=== PATIENT | female | born 1945 | race Caucasian/White ===

== ENCOUNTER 2020-08-07 07:52 | Outpatient (CLI) | payer OTHER, SELFPAY ==
--- NOTE | ~2020-08-07 | US_ITS ---
EXAMINATION: US carotid duplex BI DATE: 08/07/2020 08:39 INDICATION: Carotid artery atherosclerosis with stenosis/occlusion TECHNIQUE: Grayscale, color Doppler, and pulsed Doppler images of the cervical carotid arteries were obtained. The degree of vessel stenosis is placed in one of the following categories: normal, <50%, 5 0-69%, >=70% but less than near-occlusion, near-occlusion, or total occlusion. Note that percent sten osis relative to normal distal artery lumen diameter is indirectly measured from velocity measurement s as described by Tian, et al. Radiology 2003; 229:340-346. COMPARISON: 07/30/2010 FINDINGS: RIGHT: The right common carotid artery (CCA) peak systolic velocity (PSV) is 106 cm/s. The right internal ca rotid artery (ICA) PSV is 84 cm/s. The right ICA end-diastolic velocity (EDV) is 24 cm/s. The right I CA/CCA PSV ratio is 0.8. Grayscale and color Doppler images demonstrate no appreciable stenosis or pl aque in the ICA. The external carotid artery (ECA) PSV is 85 cm/s. There is antegrade flow in the rig ht vertebral artery. LEFT: The left CCA PSV is 74 cm/s. The left ICA PSV is 236 cm/s. The left ICA EDV is 86 cm/s. The left ICA/ CCA PSV ratio is 3.2. Grayscale and color Doppler images yield an estimate of >=70% (but less than ne ar occlusion) diameter reduction from plaque in the ICA. The ECA PSV is 338 cm/s. There is antegrade flow in the left vertebral artery. IMPRESSION: 1. Normal right internal carotid artery. 2. >=70% (but less than near occlusion) stenosis in the left internal carotid artery. Reviewed, dictated and finalized at location B. IMPRESSION: 1. Normal right internal carotid artery. 2. >=70% (but less than near occlusion) stenosis in the left internal carotid a rtery.
== END 2020-08-07 07:53 | disposition home or self-care (01) ==
PROVIDERS: PCP Internal Medicine; Visit Provider Internal Medicine
DX: I65.22 Occlusion and stenosis of left carotid artery (principal)
CPT/HCPCS: 93880

== ENCOUNTER → 2021-02-24 09:08 | Outpatient (CLI) | payer OTHER, SELFPAY ==
[2021-02-25 14:28] LABS: SARS-CoV-2 RNA PCR Negative
== END ==
PROVIDERS: PCP Internal Medicine; Visit Provider Internal Medicine
DX: J98.8 Other specified respiratory disorders (principal); Z20.822 Contact with and (suspected) exposure to COVID-19
CPT/HCPCS: C9803; U0003; U0005

== ENCOUNTER 2021-02-24 10:58 | Outpatient (CLI) | payer OTHER, SELFPAY ==
--- NOTE | ~2021-02-24 | XR_ITS ---
EXAMINATION: XR chest 2V 02/24/2021 11:34 INDICATION: Cough PROCEDURE: 2 view chest COMPARISON: 03/27/2013 FINDINGS: The lungs are clear. The cardiomediastinal silhouette is within normal limits. There are no pleural effusions. There is no pneumothorax suspected. IMPRESSION: 1: NO ACUTE CARDIOPULMONARY DISEASE. Reviewed, dictated and finalized at location A.
== END 2021-02-24 10:59 | disposition home or self-care (01) ==
PROVIDERS: PCP Internal Medicine; Visit Provider Internal Medicine
DX: R05 Cough (principal); J98.8 Other specified respiratory disorders
CPT/HCPCS: 71046; C9803; U0003; U0005

== ENCOUNTER 2021-02-27 19:31 | Emergency (ER) | payer OTHER, SELFPAY ==
--- NOTE | ~2021-02-27 | XR_ITS ---
EXAMINATION: XR soft tissue neck DATE: 02/27/2021 20:03 INDICATION: Esophageal pain. Pill stuck in throat. TECHNIQUE: 2 views of the neck soft tissues were obtained. COMPARISON: None. FINDINGS: The adenoids, palatine tonsils, epiglottis, prevertebral soft tissues, and airway are mari l. There is no radiopaque foreign body. IMPRESSION: 1. No radiopaque foreign body. Reviewed, dictated and finalized at location A.
[2021-02-27 19:33] VITALS: BP 168/69; PULSE 68; RESP 18; TEMP 36.4; O2SAT 99
[2021-02-27] MEDS: BELLADONNA ALK/PHENOB ELIX 10 ML, MAG HYDROX/ALUMINUM HYD/SIMETH 30 ML, LIDOCAINE HCL 2... PO (20:55)
--- NOTE | 2021-02-27 21:04 | PC.NURSE ---
Pt having a hard time passing any liquids states its feels so swollen and its not going down
[2021-02-27 21:25] VITALS: BP 169/83; PULSE 66; RESP 18; O2SAT 98
--- NOTE | 2021-02-27 21:25 | ED.GENADULT ---
HPI - General Adult General Chief complaint: Skin/Abscess/Foreign Body Stated complaint: pill lodged in throat Time Seen by Provider: 02/27/21 19:40 Source: patient and family Mode of arrival: ambulatory Limitations: no limitations History of Present Illness HPI narrative: 75-year-old with a history of hypertension, hyperlipidemia here with complaints of difficulty in swallowing. Patient states that she took [place] tablet and she thinks it is stuck in her throat. She is unable to swallow water or eyes. She states that she has tried several home remedies with no relief. Patient feels like golf ball stuck in her throat. She denies any nausea or vomiting. She states that she had a similar problem 20 years ago. Onset (ago): hour(s) (2) Radiation: non-radiation Severity: moderate Quality: aching Pain Consistency: constant Relieving factors: none Exacerbating factors: eating Associated symptoms: denies other symptoms Related Data Home Medications Medication Instructions Recorded Confirmed aspirin 81 mg tablet,delayed 81 mg PO DAILY 11/07/20 02/24/21 release Allergies Allergy/AdvReac Type Severity Reaction Status Date / Time No Known Allergies Allergy Verified 02/27/21 19:36 Review of Systems Review of Systems: All systems reviewed & are unremarkable except as noted in HPI and below Constitutional: Constitutional: Reports no additional constitutional complaints Eyes: Eyes: Reports no additional eye complaints ENT: Reports system reviewed and no additional complaints, except as documented Cardiovascular: Cardiovascular: Reports no additional cardiovascular complaints Respiratory: Respiratory: Reports no additional respiratory complaints Gastrointestinal: Gastrointestinal: Reports as per HPI Musculoskeletal: Musculoskeletal: Reports no additional musculoskeletal complaints Integumentary/Breasts: Skin/Breast: Reports system reviewed and no additional complaints, except as docu PMFSH Past Medical History Medical History Breast adenoma Family History Family History Mother Depression Patient's mother is Father Patient's father is Family history of alcoholism Family history of heart disease in male family member before age 55 Sibling Family history of lung cancer Patient's brother is Social History Social History Smoking status: Never smoker Alcohol intake: never Gender identity (if verbalized by the patient): Female Sexual Orientation (if Verbalized by the Patient): Straight or Heterosexual Exam Narrative: Exam Narrative: GENERAL: Well-appearing, well-nourished, and in no acute distress, anxious HEAD: Normocephalic, atraumatic. EYES: PERRLA and EOMI. ENT: Mucous membranes moist. NECK: Supple. CHEST: Clear to auscultation. No respiratory distress. HEART: Regular rate and rhythm. No murmur heard. Normal peripheral pulses. ABDOMEN: Soft, nontender, nondistended, normal active bowel sounds. EXTREMITIES: Normal range of motion. No edema. SKIN: Warm, dry, no rash. NEURO: No focal deficits. Alert and oriented x3. PSYCH: Normal mood and affect. Course Course Emergency Course: Did obtain a soft tissue neck x-ray which did not show any evidence of foreign body. I have tried GI cocktail with no relief. Discussed with Dr. Gunter will take her to the GI lab for upper endoscopy. Vital Signs Vital signs: Vital Signs Temperature 36.4 C L 02/27/21 19:33 Pulse Rate 68 02/27/21 19:33 Respiratory Rate 18 02/27/21 19:33 Blood Pressure 168/69 H 02/27/21 19:33 Pulse Oximetry 99 02/27/21 19:33 Temperature 36.4 C L 02/27/21 19:33 Pulse Rate 66 02/27/21 21:25 Respiratory Rate 18 02/27/21 21:25 Blood Pressure 169/83 H 02/27/21 21:25 Pulse Oxi
== END 2021-02-27 22:32 | disposition home or self-care (01) ==
LOC: ANHED 20:01 → ANHSURGERY 21:34 → ANHED 22:18
PROVIDERS: Emergency Provider Family Medicine; PCP Internal Medicine
DX: R13.10 Dysphagia, unspecified (principal); T17.208A Unspecified foreign body in pharynx causing other injury, initial encounter; I10 Essential (primary) hypertension; E78.5 Hyperlipidemia, unspecified
CPT/HCPCS: 70360; 99283; A9270

== ENCOUNTER 2021-04-23 00:49 | Day surgery (SDC) | payer OTHER, SELFPAY ==
[2021-04-01 13:25] VITALS: BMI 29.9
[2021-04-23 08:41] VITALS: BP 133/66; PULSE 69; RESP 18; TEMP 36.3; O2SAT 98
[2021-04-23] MEDS: LACTATED RINGERS 1,000 ML 150 ML IV CONT (08:48)
--- NOTE | 2021-04-23 09:16 | WPDANESEPPF ---
Anes - Initial Pre Proc Eval Procedure: Operation Date: 04/23/21 09:45 Proposed Procedures p Esophagogastroduodenoscopy - Yamil Brooke MD Date/Time: 04/23/21 09:17 Surgeon: Yamil Brooke MD Pre Op Diagnosis: Dysphagia Patient Data Age: 75 Gender: F Height: 1.63 m Weight: 81.7 kg Last Vital Signs Temp 97.3 F L 04/23/21 08:41 Pulse 69 04/23/21 08:41 Resp 18 04/23/21 08:41 BP 133/66 04/23/21 08:41 Pulse Ox 98 04/23/21 08:41 Allergies Allergy/AdvReac Type Severity Reaction Status Date / Time No Known Allergies Allergy Verified 04/23/21 08:40 Home Medications Medication Instructions Recorded Confirmed Type amlodipine 5 mg tablet 5 mg PO DAILY #90 tablet 06/10/20 04/23/21 Rx aspirin 81 mg tablet,delayed 81 mg PO DAILY 11/07/20 04/23/21 History release cholecalciferol (vitamin D3) 1,250 1,250 mcg PO WEEKLY #10 cap 11/18/20 04/23/21 Rx mcg (50,000 unit) capsule rosuvastatin 10 mg tablet 10 mg PO DAILY #90 tablet 02/20/21 04/23/21 Rx lisinopril 40 mg tablet See Rx Instructions .ROUTE 03/25/21 04/23/21 Rx .COMPLEX #90 tablet Patient hx anesthesia problems: none Family hx anesthesia problems: none PMFSH Past Medical History Medical History (Updated 03/04/21 @ 13:53 by KATRINA Head) Breast adenoma Hypertension Family History Family History Mother Depression Patient's mother is Father Patient's father is Family history of alcoholism Family history of heart disease in male family member before age 55 Sibling Family history of lung cancer Patient's brother is Social History Social History Smoking status: Never smoker Alcohol intake: never Living arrangements: with family Gender identity (if verbalized by the patient): Female Spiritual care concerns: No Anes - Eval Final PreProcedure Day of Procedure 04/23/21 09:17 Patient weight: obese Heart: regular rate and rhythm Lungs: clear to auscultation Airway: Mallampati scale class II Neurological: alert and oriented Last oral intake: >/= 8 hours ASA classification: III Emergent: no Anesthetic plan: proceed Anesthesia type and monitoring: general GIVS and standard monitoring Informed Consent: The patient's anesthetic plan and its attendant risks and benefits were discussed with the patient/family/POA. Questions were solicited and answers provided to the satisfaction of the patient/family/POA.
--- NOTE | 2021-04-23 09:43 | PM.HPGS ---
History of Present Illness History of Present Illness Consent: Risks, benefits, and alternatives have been discussed and questions answered. Patient agrees to proceed with procedure. Chief complaint: Dysphagia Narrative: Carly Kumar is a 75 year old female few weeks ago had episode of odynophagia/dysphagia after one pill got stuck in chest , now resolved, denies gerd. No recent EGD. Review of Systems Constitutional: Constitutional: Denies headache(s) and Denies weakness Eyes: Eyes: Denies blurry vision ENT: Reports Normal hearing present, Denies headache(s) and Denies neck pain Cardiovascular: Cardiovascular: Denies chest pain and Denies dyspnea Respiratory: Respiratory: Denies dyspnea Gastrointestinal: Gastrointestinal: Reports no additional gastrointestinal complaints Genitourinary: Genitourinary: Denies dysuria Musculoskeletal: Musculoskeletal: Denies neck pain Integumentary/Breasts: Skin/Breast: Denies dry skin Neurologic: Reports Normal hearing present, Denies headache(s) and Denies weakness Psychiatric: Psychiatric: Denies anxiety Endocrine: Endocrine: Denies change in body appearance Hematologic/Lymphatic: Hematologic/Lymphatic: Denies easy bleeding Allergic/Immunologic: Allergic/Immunologic: Denies urticaria [facility] Past Medical History Medical History (Updated 03/04/21 @ 13:53 by KATRINA Head) Breast adenoma Hypertension Family History Family History Mother Depression Patient's mother is Father Patient's father is Family history of alcoholism Family history of heart disease in male family member before age 55 Sibling Family history of lung cancer Patient's brother is Social History Social History Smoking status: Never smoker Alcohol intake: never Living arrangements: with family Gender identity (if verbalized by the patient): Female Spiritual care concerns: No Meds Home Medications and Allergies Home Medications Medication Instructions Recorded Confirmed Type amlodipine 5 mg tablet 5 mg PO DAILY #90 tablet 06/10/20 04/23/21 Rx aspirin 81 mg tablet,delayed 81 mg PO DAILY 11/07/20 04/23/21 History release cholecalciferol (vitamin D3) 1,250 1,250 mcg PO WEEKLY #10 cap 11/18/20 04/23/21 Rx mcg (50,000 unit) capsule rosuvastatin 10 mg tablet 10 mg PO DAILY #90 tablet 02/20/21 04/23/21 Rx lisinopril 40 mg tablet See Rx Instructions .ROUTE 03/25/21 04/23/21 Rx .COMPLEX #90 tablet Allergies Allergy/AdvReac Type Severity Reaction Status Date / Time No Known Allergies Allergy Verified 04/23/21 08:40 Vital Signs Vital Signs - 24 hr 04/23/21 08:41 Temperature 97.3 F L Pulse Rate 69 Respiratory Rate 18 Blood Pressure 133/66 Pulse Oximetry 98 Exam Const: General: comfortable and no acute distress HENMT: General nose exam: Normal nares present Eyes: General: appearance normal, both eyes and all related structures Neck: Neck: no JVD Resp: Auscultation: clear to auscultation bilaterally Cardio: Rate: regular rate Rhythm: regular rhythm GI: Inspection: non-distended GI Palp: Yes Soft to palpation Skin: General skin exam: normal color Neuro: General: gait normal Speech: normal speech Extrem: General: normal to inspection Psych: Mental Status: mental status grossly normal Assessment and Plan Assessment and plan (1) Dysphagia: Qualifiers: Dysphagia type: esophageal phase Qualified Code(s): R13.10 - Dysphagia, unspecified Code(s): R13.10 - Dysphagia, unspecified Status: Acute Assessment and Plan: wonder if could have been pill esophagitis, now back to her baseline. Will assess with egd
[2021-04-23 09:59] VITALS: BP 127/67; PULSE 68; RESP 15; O2SAT 97
[2021-04-23 10:09] VITALS: BP 118/67; PULSE 57; RESP 16; O2SAT 95
[2021-04-23 10:19] VITALS: BP 139/78; PULSE 59; RESP 19; O2SAT 98
== END 2021-04-23 10:48 | disposition home or self-care (01) ==
PROVIDERS: PCP Internal Medicine; Visit Provider Internal Medicine Gastroenterology
PROC: 0DJ08ZZ Inspection of Upper Intestinal Tract, Via Natural or Artificial Opening Endoscopic (ICD-10-PCS; CPT 43235; principal; 2021-04-23 09:45)
DX: R13.10 Dysphagia, unspecified (principal); K29.50 Unspecified chronic gastritis without bleeding; I10 Essential (primary) hypertension; Z79.82 Long term (current) use of aspirin; E66.9 Obesity, unspecified; Z68.30 Body mass index [BMI] 30.0-30.9, adult
CPT/HCPCS: 43239; 88305; J2704; J7120

== ENCOUNTER 2022-03-03 10:27 | Outpatient (CLI) | payer OTHER, SELFPAY ==
--- NOTE | ~2022-03-03 | NM_ITS ---
EXAMINATION: NM stress w perf spect multi DATE: 03/03/2022 15:17 INDICATION: Dyspnea TECHNIQUE: Rest images were obtained following intravenous administration of 9.8 mCi Tc99m tetrofosmi n (Clip Interactive). The patient performed an exercise activity. At peak exercise, 29 mCi Tc99m tetrofosmin ( Myoview) was administered intravenously, and stress images were obtained. Data was reconstructed into short axis and horizontal and vertical long axis SPECT images. Gated SPECT images were also obtained . COMPARISON: None. FINDINGS: There is normal left ventricular perfusion without definite evidence of reversible or fixed perfusion abnormality to suggest ischemia or infarction. There is normal left ventricular chamber size, wall motion and ejection fraction. Left ventricular ejection fraction measures >70%. IMPRESSION: 1. Normal myocardial perfusion at rest and during stress. 2. Left ventricular ejection fraction measuring >70%. Reviewed, dictated and finalized at location A.
--- NOTE | 2022-03-03 10:28 | EST_ITS ---
Patient Info Name: Carly Kumar Age: 76 years : 1945 Gender: Female Ht: 64 in Wt: 175 lbs BSA: 1.92 m2 HR: 60 bpm BP: 136 / 71 mmHg Heart Rhythm: Sinus Rhythm Exam Date: 03/03/2022 12:02 PM Exam Location: [facility] Stress Patient Status: Outpatient Admit Date: 03/03/2022 Staff Ordering Physician: Anjel Reyes DO Attending Provider: Anjel Reyes DO Exercise Technologist: Zina España CT Exercise Physician: Anjel Reyes DO Exam Type: CA stress test treadmill w NM Study Info Indications Z01.810 - Encounter for preprocedural cardiovascular examination A nuclear stress test was performed. Summary 1. 1. Negative Mikey exercise stress test for ischemic ST changes by ECG criteria. 2. 2. Reduced functional capacity, achieving 7 METs of workload. 3. 3. Appropriate HR response to exercise. 4. 4. Appropriate HR recovery at 1 minute post exercise. 5. 5. Nuclear scan to follow and will be reported separately. Please correlate with it. 6. 6. Patient informed of the above results. Protocol: Mikey Stress ECG Details Stage: REST Duration (min): 1 min : 7 sec Speed (mph): 0.0 Grade (%): 0 HR (bpm): 60 SBP (mmHg): 136 DBP (mmHg): 71 METS: --- Stage: REST Duration (min): 1 min : 17 sec Speed (mph): 0.0 Grade (%): 0 HR (bpm): 60 SBP (mmHg): 136 DBP (mmHg): 71 METS: --- Stage: REST Duration (min): 1 min : 34 sec Speed (mph): 0.0 Grade (%): 0 HR (bpm): 58 SBP (mmHg): 136 DBP (mmHg): 71 METS: --- Stage: REST Duration (min): 1 min : 42 sec Speed (mph): 0.0 Grade (%): 0 HR (bpm): 58 SBP (mmHg): 136 DBP (mmHg): 71 METS: --- Stage: REST Duration (min): 3 min : 6 sec Speed (mph): 0.0 Grade (%): 0 HR (bpm): 77 SBP (mmHg): 136 DBP (mmHg): 71 METS: --- Stage: REST Duration (min): 3 min : 21 sec Speed (mph): 0.0 Grade (%): 0 HR (bpm): 69 SBP (mmHg): 136 DBP (mmHg): 71 METS: --- Stage: REST Duration (min): 4 min : 59 sec Speed (mph): 0.0 Grade (%): 0 HR (bpm): 71 SBP (mmHg): 136 DBP (mmHg): 71 METS: --- Stage: STAGE 1 Duration (min): 1 min : 0 sec Speed (mph): 1.7 Grade (%): 10 HR (bpm): 102 SBP (mmHg): 136 DBP (mmHg): 71 METS: --- Stage: STAGE 1 Duration (min): 2 min : 0 sec Speed (mph): 1.7 Grade (%): 10 HR (bpm): 117 SBP (mmHg): 136 DBP (mmHg): 71 METS: --- Stage: STAGE 1 Duration (min): 3 min : 0 sec Speed (mph): 1.7 Grade (%): 10 HR (bpm): 124 SBP (mmHg): 185 DBP (mmHg): 65 METS: --- Stage: STAGE 2 Duration (min): 1 min : 0 sec Speed (mph): 2.5 Grade (%): 12 HR (bpm): 134 SBP (mmHg): 185 DBP (mmHg): 65 METS: --- Stage: RECOVERY Duration (min): 1 min : 0 sec Speed (mph): 0.0 Grade (%): 0 HR (bpm): 128 SBP (mmHg): 190 DBP (mmHg):
== END 2022-03-03 10:28 | disposition home or self-care (01) ==
PROVIDERS: PCP Family Medicine; Visit Provider Internal Medicine Cardiovascular Disease
DX: R06.00 Dyspnea, unspecified (principal)
CPT/HCPCS: 78452; 93017; A9502

== ENCOUNTER → 2022-06-25 09:03 | Outpatient (CLI) | payer OTHER, SELFPAY ==
--- NOTE | ~2022-06-25 | MM_ITS ---
EXAMINATION: MM diagnostic adriana BI w kim HISTORY: Possible asymmetric enlargement of the left breast TECHNIQUE: Craniocaudal, mediolateral, and mediolateral oblique 3-D tomosynthesis images of the breas ts were performed and synthetic 2-D images were generated. CAD analysis was submitted and interpreted . COMPARISON: 04/24/2019, 11/28/2018, 08/12/2017 BREAST PARENCHYMAL COMPOSITION: The breasts are heterogeneously dense, which may obscure small masses . FINDINGS: There is no suspicious mass, calcification, or architectural distortion in either breast t o suggest malignancy. There has been no suspicious interval change. IMPRESSION: 1. No mammographic evidence of malignancy. 2. Recommend routine screening mammography in one year. BI-RADS Category 1: Negative Reviewed, dictated and finalized at location A.
== END ==
PROVIDERS: PCP Family Medicine; Visit Provider Family Medicine
DX: N64.4 Mastodynia (principal)
CPT/HCPCS: 77062; 77066; G0279

== ENCOUNTER 2023-08-11 09:57 | Outpatient (CLI) | payer OTHER, SELFPAY ==
--- NOTE | 2023-08-11 11:15 | NEURO_ITS ---
Impression: # Complains of nocturnal hand pain. # Left Carpal Tunnel Syndrome. # No ulnar neuropathy. # Normal needle/EMG. Nerve Conduction Studies Anti Sensory Summary Table Stim Site NR Peak (ms) P-T Amp (?V) Site1 Site2 Delta-P (ms) Dist (cm) Ac (m/s) Left Median Anti Sensory (2-3nd Digit) Wrist 3.8 45.6 Wrist 2-3nd Digit 3.8 14.0 37 Wrist 4.0 48.6 Wrist 2-3nd Digit 3.8 14.0 37 Left Radial Anti Sensory (Base 1st Digit) Wrist 2.1 35.1 Wrist Base 1st Digit 2.1 0.0 Left Ulnar Anti Sensory (5th Digit) Wrist 2.4 59.9 Wrist 5th Digit 2.4 14.0 58 Motor Summary Table Stim Site NR Onset (ms) O-P Amp (mV) Site1 Site2 Delta-0 (ms) Dist (cm) Ac (m/s) Left Median Motor (Abd Poll Brev) Wrist 4.5 1.6 Elbow Wrist 5.0 30.0 60 Elbow 9.5 0.9 Left Ulnar Motor (Abd Dig Minimi) Wrist 2.6 6.1 A Elbow Wrist 5.6 33.0 59 A Elbow 8.2 4.7 F Wave Studies NR F-Lat (ms) L-R F-Lat (ms) Left Median (Mrkrs) (Abd Poll Brev) 29.30 Left Ulnar (Mrkrs) (Abd Dig Min) 28.39 EMG Side Muscle Nerve Root Ins Act Fibs Amp Dur Recrt Comment Left 1stDorInt Ulnar C8-T1 Nml Nml Nml Nml Nml Left Ext Indicis Radial (Post Int) C7-8 Nml Nml Nml Nml Nml Left Ext Digitorum Radial (Post Int) C7-8 Nml Nml Nml Nml Nml Left BrachioRad Radial C5-6 Nml Nml Nml Nml Nml Left PronatorTeres Median C6-7 Nml Nml Nml Nml Nml Left Abd Poll Brev Median C8-T1 Nml Nml Nml Nml Nml MTDD
== END 2023-08-11 09:58 | disposition home or self-care (01) ==
PROVIDERS: PCP Family Medicine; Visit Provider Family Medicine
DX: G56.02 Carpal tunnel syndrome, left upper limb (principal)
CPT/HCPCS: 95886; 95909

== ENCOUNTER → 2023-11-29 12:14 | Outpatient (CLI) | payer OTHER, SELFPAY ==
--- NOTE | ~2023-11-29 | MM_ITS ---
EXAMINATION: MM screening [facility] BI w kim HISTORY: Screening mammogram TECHNIQUE: Craniocaudal and mediolateral oblique 3-D tomosynthesis images were obtained and synthetic 2-D images were generated. CAD analysis was submitted and interpreted. COMPARISON: 06/25/2022, 04/24/2019, 11/28/2018, 08/12/2017 BREAST PARENCHYMAL COMPOSITION: The breasts are heterogeneously dense, which may obscure small masses . FINDINGS: RIGHT BREAST: An asymmetry is present in the far posterior third of the lower breast 15 cm from the n ipple on the mediolateral oblique view. LEFT BREAST: No suspicious mass, calcification, or architectural distortion are identified to suggest malignancy. There has been no suspicious interval change. IMPRESSION: 1. Right breast asymmetry on the mediolateral oblique view. 2. Additional mammographic views and possible breast ultrasound are recommended. BI-RADS Category 0: Incomplete: Needs additional imaging evaluation. Reviewed, dictated and finalized at location A. DYE HAND IMPRESSION: 1. Right breast asymmetry on the mediolateral oblique view. 2. Additional mammographic views and possible breast ultrasound are recommended . BI-RADS Category 0: Incomplete: Needs additional imaging evaluation.
== END ==
PROVIDERS: PCP Family Medicine; Visit Provider Family Medicine
DX: Z12.31 Encounter for screening mammogram for malignant neoplasm of breast (principal); R92.8 Other abnormal and inconclusive findings on diagnostic imaging of breast
CPT/HCPCS: 77063; 77067

== ENCOUNTER 2023-12-29 13:10 | Outpatient (CLI) | payer OTHER, SELFPAY ==
--- NOTE | ~2023-12-29 | MM_ITS ---
EXAMINATION: MM diagnostic adriana RT w kim HISTORY: Right breast asymmetry reported on screening MLO mammogram view of November 29, 2023 TECHNIQUE: Additional 3-D tomosynthesis images of the right breast were performed and synthetic 2-D i mages were generated. CAD analysis was submitted and interpreted. COMPARISON: November 29, 2023 bilateral screening mammogram FINDINGS: No suspicious mass or architectural distortion or other significant abnormalities detected at the area of interest in the posterior lower right breast on MLO view on these supplemental views. IMPRESSION: 1. No mammographic evidence of malignancy 2. Routine annual mammographic screening is recommended BI-RADS Category 1: Negative Reviewed, dictated and finalized at location A. [employer]
== END 2023-12-29 13:11 | disposition home or self-care (01) ==
PROVIDERS: PCP Family Medicine; Visit Provider Family Medicine
DX: R92.8 Other abnormal and inconclusive findings on diagnostic imaging of breast (principal)
CPT/HCPCS: 77061; 77065; G0279

== ENCOUNTER 2024-01-17 08:38 | Emergency (ER) | payer OTHER, SELFPAY ==
--- NOTE | ~2024-01-17 | XR_ITS ---
XR knee LT min 4V 01/17/2024 09:03 Indication: Left knee pain Procedure: 4 views left knee Comparison: 07/28/2010 Findings: There is severe tricompartment osteoarthritis. Small joint effusion. No fracture or traumat ic malalignment. Impression: 1: Severe osteoarthritis of the left knee. Reviewed, dictated and finalized at location B. Impression: 1: Severe osteoarthritis of the left knee.
[2024-01-17 08:43] VITALS: BP 157/78; PULSE 64; RESP 16; TEMP 36.7; O2SAT 96
--- NOTE | 2024-01-17 09:00 | ED.EXTPRO ---
HPI - Extremity Problem General Chief complaint: Extremity Problem,Nontraumatic Stated complaint: left knee pain X3 weeks Time Seen by Provider: 01/17/24 08:55 Source: patient Mode of arrival: ambulatory Limitations: no limitations History of Present Illness HPI Narrative: This is a 78-year-old female with PMH of HTN, HLD who presents to the ED with chief complaint of left knee pain ongoing for the past 3 weeks. Denies any specific injury or trauma. States that the knee has been hurting more with weight-bearing. Today she reports the pain was so bad it was difficult to walk when getting out of bed. States she is able to bend the knee. Denies any surgical history or arthritis history of in the past. Denies any recent infections. Denies fevers, chills, nausea, vomiting. She has been trying to take ibuprofen 400 mg with minimal relief. She has appointment with primary doctor next week for this issue. Related Data Home Medications Medication Instructions Recorded Confirmed aspirin 81 mg tablet,delayed 81 mg PO DAILY 11/07/20 10/27/23 release (Adult Aspirin Regimen) cholecalciferol (vitamin D3) 50 2,000 unit PO DAILY 06/30/23 10/27/23 mcg (2,000 unit) tablet amlodipine 5 mg PO DAILY 09/13/23 10/27/23 Allergies Allergy/AdvReac Type Severity Reaction Status Date / Time No Known Allergies Allergy Verified 01/17/24 08:39 Review of Systems Review of Systems: All systems as dictated in HPI [facility] Past Medical History Medical History (Updated 01/17/24 @ 09:16 by Tyrone Schafer PA-C) Abnormal mammogram of right breast (11/29/23) mild asymmetry of the right breast on mammogram 11/29/2023 with need for additional views and ultrasound. Normal mammogram 12/29/2023. Actinic keratosis (~12/22/21) nose and left forearm Acute non-recurrent maxillary sinusitis At low risk for fall BMI 30.0-30.9,adult BMI 31.0-31.9,adult BMI 32.0-32.9,adult Breast adenoma Breast cancer screening by mammogram Breast pain, left (~03/2022) Chronic serous otitis media of both ears COVID-19 vaccine series completed Dermatitis (06/12/22) left anterior chest Dysphagia Fibrocystic breast normal mammogram 06/25/2022 with recheck in 1 year. Headache Hypertension Left otitis media Mixed hyperlipidemia Total cholesterol 172, triglycerides 197, HDL 56 and LDL 87 on 05/13/2021. total cholesterol 184, triglycerides 202, HDL 58, LDL 92 on 06/21/2023. Otalgia of left ear Otitis media Seasonal allergic rhinitis Vitamin D deficiency (~06/21/23) Level low at 22.9 on 06/21/2023. Family History Family History Mother Depression Patient's mother is Father Patient's father is Family history of alcoholism Family history of heart disease in male family member before age 55 Sibling Family history of lung cancer Patient's brother is Social History Social History Smoking status: Never smoker Second hand tobacco smoke exposure: No Alcohol intake: never Substance use: never Substance use type: does not use Lack of Transportation: YES Lack of Food: Never True Current Housing: I Have Housing Concerned About Future Housing: No Difficulty Paying Gas/Electric Bills: No Difficulty Paying for Meds: No Currently Unemployed: No Education: Master's Degree or Higher Difficulty w/ Childcare or Family Care: No Living arrangements: with family Gender identity (if verbalized by the patient): Female Sexual Orientation (if Verbalized by the Patient): Straight or Heterosexual Spiritual care concerns: No Exam Narrative: GENERAL: Well-appearing, well-nourished, and in no acute distress. HEAD: Normocephalic, atraumatic. EYES: PERRLA and EOMI. ENT: Nares clear, no rhinorrhea or epistaxis. Mucous membranes moist. Oropharynx without tonsillar h
[2024-01-17] MEDS: ACETAMINOPHEN 500 MG TABLET 1000 MG PO (09:22)
[2024-01-17] MEDS: IBUPROFEN 600 MG TABLET PO (09:22)
[2024-01-17 10:20] VITALS: BP 148/70; PULSE 68; RESP 16; TEMP 36.7; O2SAT 98
== END 2024-01-17 10:22 | disposition home or self-care (01) ==
PROVIDERS: Emergency Provider Physician Assistant; PCP Family Medicine
DX: M17.12 Unilateral primary osteoarthritis, left knee (principal); I10 Essential (primary) hypertension; E78.2 Mixed hyperlipidemia; E55.9 Vitamin D deficiency, unspecified; H65.23 Chronic serous otitis media, bilateral; Z79.82 Long term (current) use of aspirin
CPT/HCPCS: 73564; 99283; A9270

== ENCOUNTER 2024-03-08 10:00 | Outpatient (RCR) | payer OTHER, SELFPAY ==
--- NOTE | 2024-02-10 11:57 | OPREHPOC ---
Outpatient Therapy Plan of Care This is a Multidisciplinary Plan of Care that may contain components documented by all disciplines (PT, OT, and ST.) PT Problem 1 PT Problem #1 Knowledge Deficit PT Goal 1 Goal *indep with HEP Target Visit 6 PT Problem 2 PT Problem #2 Pain PT Goal 1 Goal 1* decrease pain rating at worst to 2/10 2* pt report walking tolerance of 30 minutes Target Visit 6 PT Problem 3 PT Problem #3 Impaired Strength PT Goal 1 Goal increase strength of L hip and knee, to improve support to knee 1* pt perform mat strengthening exercises 20 reps 2* with walking, pt have slight limp on L LE Target Visit 6
--- NOTE | 2024-02-10 11:57 | PTOPEVAL1 ---
Assessment and note entered by Jannet Langley, PT Evaluation Information Assessment Status Evaluation Diagnosis L knee pain Onset about one month ago Subjective Information woke up one morning and L knee hurt so bad could not walk on it; went to ER, had injection- it has helped; x ray report stated severe tricompartment OA- dr wanted to do surgery, she wants to hold off on surgery if she can; walking with a limp and favoring her L knee; Activity: retired, active, does not use assistive device. indep with in- home and self care activities; likes to walk for fitness--have not been doing because of knee pain; Reported Pain Level Pain Score Self Report Additional Pain Score Comments pain range in the past week 2-3/10; uncomfortable in knee, sometimes a sharp pain injection from has helped decrease pain: sit, rest, taking natural supplements increase pain: walking- 15-20 minutes sleeping OK; have a knee patch on knee that has some medicine in it from [employer] is not using heat/ice- instruct on 10-15 min use PRN have a knee compression sleeve, but does not like it; discussed knee brace with velcro straps for support to knee; Assessment PT Clinical Summary Ashley has the diagnosis of L knee pain. The xray reports severe tri compartmental OA. The injection helped ease the pain. Walking is limited due to pain. She is active and indep with all tasks. With the evaluation: she has decreased ROM of knee (-10') to 95'- pain increase with extension; with walking has decreased weight bearing on L LE; 2 minute walking test distance of 400' and sit/ stand 5 reps time of 17 sec, without use of UE's; weakness of L hip extension. Skilled PT services are indicated for modalities to decrease pain; therapeutic exercises to increase L hip and knee ROM and strength with education for HEP and pa
--- NOTE | 2024-04-12 13:36 | PTOPDC ---
Assessment and note entered by Jannet Langley, PT Discharge Report Assessment Status Discharge - Pt Not Present Diagnosis L knee pain Onset about one month ago Subjective Information pt was not seen this date. Assessment PT Clinical Summary Mrs. Kumar has received 5 PT sessions, from February 09 to March 08. She then stopped attending therapy. Discharge PT at this time. The goals were not addressed. Plan of Care PT Services Indicated No
== END 2024-04-12 14:46 | disposition home or self-care (01) ==
LOC: ANHPT 10:00
PROVIDERS: PCP Family Medicine; Visit Provider Orthopaedic Surgery
DX: M25.562 Pain in left knee (principal)
CPT/HCPCS: 97110; 97112; 97140; 97161; 97530

== ENCOUNTER 2024-03-14 07:25 | Emergency (ER) | payer OTHER, SELFPAY ==
--- NOTE | ~2024-03-14 | XR_ITS ---
EXAMINATION: XR knee LT 3V DATE: 03/14/2024 08:14 INDICATION: Left knee injury. TECHNIQUE: 3 views of left knee were obtained. COMPARISON: Left knee radiographs 01/17/2024 FINDINGS: Bone alignment is normal. No fracture. There is moderate tricompartmental osteoarthritis. T here is a moderate-sized knee joint effusion. IMPRESSION: 1. Moderate left knee osteoarthritis. 2. Moderate-sized left knee joint effusion. Reviewed, dictated and finalized at location A.
[2024-03-14 07:36] VITALS: BP 149/70; PULSE 76; RESP 16; O2SAT 98
[2024-03-14 07:46] VITALS: BP 149/70; PULSE 64; RESP 16; TEMP 36.7; O2SAT 100
--- NOTE | 2024-03-14 07:48 | ED.FALL ---
HPI - Fall General Chief Complaint: Fall Stated Complaint: fall Time Seen by Provider: 03/14/24 07:31 History of Present Illness HPI Narrative: Patient was at the post office yesterday helping somewhat open a door when she missed a step and fell, thankfully was able to grab onto a guard rail but did land on her left knee, she already has been having problems with her left knee. Related Data Home Medications Medication Instructions Recorded Confirmed aspirin 81 mg tablet,delayed 81 mg PO DAILY 11/07/20 01/27/24 release (Adult Aspirin Regimen) cholecalciferol (vitamin D3) 50 2,000 unit PO DAILY 06/30/23 01/27/24 mcg (2,000 unit) tablet Allergies Allergy/AdvReac Type Severity Reaction Status Date / Time No Known Allergies Allergy Verified 01/27/24 09:46 Review of Systems Review of Systems: All systems reviewed & are unremarkable except as noted in HPI and below PMFSH Past Medical History Medical History (Updated 03/14/24 @ 08:43 by Fior Bobo MD) Abnormal mammogram of right breast (11/29/23) mild asymmetry of the right breast on mammogram 11/29/2023 with need for additional views and ultrasound. Normal mammogram 12/29/2023. Actinic keratosis (~12/22/21) nose and left forearm Acute non-recurrent maxillary sinusitis At low risk for fall BMI 30.0-30.9,adult BMI 31.0-31.9,adult BMI 32.0-32.9,adult Breast adenoma Breast cancer screening by mammogram Breast pain, left (~03/2022) Chronic pain of left knee (~12/2023) severe tricompartmental osteoarthritis on x-ray in the ER 01/17/2024. Chronic serous otitis media of both ears COVID-19 vaccine series completed Dermatitis (06/12/22) left anterior chest Dysphagia Elevated hemoglobin A1c hemoglobin A1c 6.4 with normal glucose at 89 on 01/25/2024. Fibrocystic breast normal mammogram 06/25/2022 with recheck in 1 year. Headache Hypertension Left otitis media Mixed hyperlipidemia Total cholesterol 172, triglycerides 197, HDL 56 and LDL 87 on 05/13/2021. total cholesterol 184, triglycerides 202, HDL 58, LDL 92 on 06/21/2023. Cholesterol 165, triglycerides 190, HDL 54, LDL 79 on 01/25/2024. Otalgia of left ear Otitis media Seasonal allergic rhinitis Vitamin D deficiency (~06/21/23) Level low at 22.9 on 06/21/2023. Surgical History Surgical History (Updated 01/27/24 @ 09:58 by Sravanthi Chinchilla [employer]) H/O coronary artery bypass surgery 04/15 Family History Family History Mother Depression Patient's mother is Father Patient's father is Family history of alcoholism Family history of heart disease in male family member before age 55 Sibling Family history of lung cancer Patient's brother is Social History Social History Smoking status: Never smoker Second hand tobacco smoke exposure: No Alcohol intake: never Substance use: never Substance use type: does not use Do You Feel Safe in your Home?: Yes Lack of Transportation: No Lack of Food: Never True Current Housing: I Have Housing Concerned About Future Housing: No Difficulty Paying Gas/Electric Bills: No Difficulty Paying for Meds: No Currently Unemployed: No Education: Master's Degree or Higher Difficulty w/ Childcare or Family Care: No Living arrangements: with family Gender identity (if verbalized by the patient): Female Sexual Orientation (if Verbalized by the Patient): Straight or Heterosexual Spiritual care concerns: No Exam Narrative: EXAMINATION OF ORGAN SYSTEMS/BODY AREAS: Constitutional: Vital signs per nursing GENERAL:[No acute distress, non-toxic appearing.] HEAD: Normal with no signs of head trauma. NECK: No midline tenderness EYES: EOMI, conjunctiva normal ENT: Hearing grossly intact LUNGS: Nonlabored breathing. HEART: [Regular rate and rhythm], normal DP pulses
[2024-03-14 08:15] VITALS: BP 136/68; PULSE 74; RESP 16; TEMP 36.6; O2SAT 99
== END 2024-03-14 08:56 | disposition home or self-care (01) ==
PROVIDERS: Emergency Provider Emergency Medicine; PCP Family Medicine
DX: S83.92XA Sprain of unspecified site of left knee, initial encounter (principal); W10.9XXA Fall (on) (from) unspecified stairs and steps, initial encounter; I10 Essential (primary) hypertension; E55.9 Vitamin D deficiency, unspecified; E78.2 Mixed hyperlipidemia
CPT/HCPCS: 73562; 99283

== ENCOUNTER 2024-04-18 09:19 | Outpatient (CLI) | payer OTHER, SELFPAY ==
--- NOTE | 2024-04-18 11:10 | ECG_ITS ---
Test Date: 2024-04-18 11:22:20 Measurements Intervals [place] Rate: 60 P: 45 TX: 192 QRS: -9 QRSD: 105 T: 18 QT: 424 QTc: 426 Interpretive Statements SINUS RHYTHM POOR R-WAVE PROGRESSION No previous ECG available for comparison Electronically Signed On 04-18-2024 13:40:00 CDT by Harley Flores M.D.
[2024-04-18 11:51] LABS: Basophils Absolute Auto 0.1 K/mm3 (0.0-0.1); Basophils Percent Auto 1.1 % (0.2-1.2); Eosinophils Absolute Auto 0.1 K/mm3 (0-0.3); Eosinophils Percent Auto 1.7 % (0-4.4); Hematocrit 36.7 % (37.0-47.0); Hemoglobin 11.9 g/dL (12.0-15.0); Immature Granulocyte Absolute 0.03 K/mm3 (0.00-0.031); Immature Granulocyte Percent A 0.4 % (0-0.5); Lymphocytes Absolute Auto 2.62 K/mm3 (0.9-3.2); Lymphocytes Percent Auto 32.1 % (18.3-44.2); Mean Corpuscular HGB Conc 32.4 g/dl (32-36); Mean Corpuscular Hemoglobin 30.7 pg (26-34); Mean Corpuscular Volume 94.6 fl (80-100); Monocytes Absolute Auto 0.7 K/mm3 (0.1-0.6); Monocytes Percent Auto 8.8 % (2.6-8.5); Neutrophils Absolute Auto 4.6 K/mm3 (1.3-6.7); Neutrophils Percent Auto 55.9 % (45.5-73.1); Platelet Count Result 237 k/mm3 (150-375); Red Blood Count 3.88 M/mm3 (4.2-5.4); Red Cell Distribution Width 13.3 % (11.5-14.5); White Blood Count 8.2 K/mm3 (4.5-10.0)
[2024-04-18 12:13] LABS: Albumin Level 4.4 g/dL (3.5-5.1); Estimated Glomerular Filt Rate > 60; Glucose 84 mg/dL (65-110)
[2024-04-18 12:31] LABS: Urine Cotinine NEGATIVE
[2024-04-18 12:32] LABS: Hemoglobin A1C 6.1 % (<5.7)
== END 2024-04-18 09:20 | disposition home or self-care (01) ==
LOC: ANHSURGERY 09:26
PROVIDERS: PCP Family Medicine; Visit Provider Orthopaedic Surgery
DX: Z01.818 Encounter for other preprocedural examination (principal); M17.12 Unilateral primary osteoarthritis, left knee
CPT/HCPCS: 80307; 82040; 82565; 82947; 83036; 85025; 86850; 86900; 86901; 93005

== ENCOUNTER 2024-04-27 16:34 | Observation (INO) | payer OTHER, SELFPAY ==
[2024-04-18 10:25] VITALS: BP 151/74; PULSE 69; RESP 16; TEMP 36.9; O2SAT 98; BMI 32.0
--- NOTE | 2024-04-18 10:44 | PC.NURSE ---
Report to the Outpatient Waiting Room, entrance under the green pavilion located off [facility], at time __6:00AM on date ___04/26/24____. Planned Procedure Time: ___7:30AM . Time changes happen often and if your time is changed the preop area will call you the afternoon before. - You and your visitor will be asked to self-screen and do not enter if you have any COVID symptoms. - A mask is optional within the hospital at this time. Patients may have clear liquids (water, carbonated beverages, clear teas, apple juice) until 3 hours prior to surgery with a maximum of 20 ounces. - No food from midnight until time of surgery. Take the following medications with a SIP of water the morning of surgery: ____NONE DO NOT STOP ANY OF YOUR OTHER PRESCRIPTION MEDICATIONS PRIOR TO SURGERY ?EXCEPT THE FOLLOWING Medications to discontinue per physician __HOLD ALL VITAMINS/SUPPLEMENTS 3 DAYS PRE-OP PER ANESTHESIA- 04/22/24 HOLD ASPIRIN AND ADVIL PER DR FUNES- OFFICE WILL CALL PATIENT TO CONFIRM Please no make-up, nail setswana, hairspray, perfume, deodorant, or body powder the day of surgery. No jewelry (including any body piercings) or valuables the day of surgery, leave them at home. Please take a shower or bath the night before, or the morning of, surgery with an antibacterial soap. Wear comfortable, loose fitting clothing. - Jewelry must be removed prior to entering the operating room. Rings and piercings that are not removed may be cut off. - The hospital will not accept responsibility for valuables. - Please leave all valuables, including medications, at home the day of surgery. If you are going home after surgery, a licensed starting gate driver must drive you home. - NO public transportation without another adult if you receive anesthesia. - We recommend that an adult stay with you for 24 hours following discharge. - We also recommend that you do not drive, make important decision, drink alcoholic beverages, or take any drugs that were not prescribed by your health care provider for at least 24 hours after your discharge time. Follow any additional instructions given to you from your surgeon. If you or anyone in your household have experienced Covid symptoms in the past week, please notify your surgeon or the nurse liaison at the phone number below for possible testing. Telephone instructions given to ___PATIENT and asked if any additional questions and then verbalized understanding. Patient advised to call surgeon office or pre surgery nurse liaison [phone] if any additional questions.
--- NOTE | 2024-04-25 08:21 | PC.NURSE ---
Patient called to report she forgot to STOP taking Advil over the weekend, she took 1 tablet on Wednesday, 2 on Wednesday, and 1 on Wednesday. She did call Dr. Palacios office to let them know, but has not heard back from them as of yet. Encouraged pt to STOP any further NSAIDS, and take Only Tylenol and contact Dr Palacios office again this am to make sure she is still on for tomorrow.
--- NOTE | 2024-04-25 12:11 | PM.IMHP ---
H&P: HPI History of Present Illness Date/Time: 04/25/24 12:11 Chief Complaint: Patient has a painful left knee. She has osteoarthritis and has failed conservative treatment to date. She would like to proceed with knee replacement surgery. Review of Systems Musculoskeletal: Musculoskeletal: Reports arthralgias, Reports joint swelling and Reports stiffness [facility] Past Medical History Medical History (Updated 04/19/24 @ 14:57 by Ace Fan MD) Abnormal mammogram of right breast (11/29/23) mild asymmetry of the right breast on mammogram 11/29/2023 with need for additional views and ultrasound. Normal mammogram 12/29/2023. Actinic keratosis (~12/22/21) nose and left forearm Acute non-recurrent maxillary sinusitis At low risk for fall BMI 30.0-30.9,adult BMI 31.0-31.9,adult BMI 32.0-32.9,adult Breast adenoma Breast cancer screening by mammogram Breast pain, left (~03/2022) Chronic pain of left knee (~12/2023) severe tricompartmental osteoarthritis on x-ray in the ER 01/17/2024. Chronic serous otitis media of both ears COVID-19 vaccine series completed Dermatitis (06/12/22) left anterior chest Dysphagia Elevated hemoglobin A1c hemoglobin A1c 6.4 with normal glucose at 89 on 01/25/2024. glucose 84 with hemoglobin A1c 6.1 on 04/18/2024. Fibrocystic breast normal mammogram 06/25/2022 with recheck in 1 year. Headache Hypertension Left otitis media Mixed hyperlipidemia Total cholesterol 172, triglycerides 197, HDL 56 and LDL 87 on 05/13/2021. total cholesterol 184, triglycerides 202, HDL 58, LDL 92 on 06/21/2023. Cholesterol 165, triglycerides 190, HDL 54, LDL 79 on 01/25/2024. Non-healing skin lesion (~12/2023) left maxillary face 0.4 cm with shave biopsy 04/19/2024 Otalgia of left ear Otitis media Seasonal allergic rhinitis Vitamin D deficiency (~06/21/23) Level low at 22.9 on 06/21/2023. Surgical History Surgical History H/O coronary artery bypass surgery 04/15 Family History Family History Mother Depression Patient's mother is Father Patient's father is Family history of alcoholism Family history of heart disease in male family member before age 55 Sibling Family history of lung cancer Patient's brother is Social History Social History Smoking status: Never smoker Second hand tobacco smoke exposure: No Alcohol intake: never Substance use: never Substance use type: does not use Do You Feel Safe in your Home?: Yes Lack of Transportation: No Lack of Food: Never True Current Housing: I Have Housing Concerned About Future Housing: No Difficulty Paying Gas/Electric Bills: No Difficulty Paying for Meds: No Currently Unemployed: No Education: Master's Degree or Higher Difficulty w/ Childcare or Family Care: No Living arrangements: with family Additional living arrangements comments: HUSB Gender identity (if verbalized by the patient): Female Sexual Orientation (if Verbalized by the Patient): Straight or Heterosexual Spiritual care concerns: No Meds Home Medications and Allergies Home Medications Medication Instructions Recorded Confirmed Type aspirin 81 mg tablet,delayed 81 mg PO DAILY 11/07/20 04/18/24 History release (Adult Aspirin Regimen) cholecalciferol (vitamin D3) 50 2,000 unit PO DAILY 06/30/23 04/18/24 History mcg (2,000 unit) tablet rosuvastatin 10 mg tablet 10 mg PO DAILY #90 tabs 06/30/23 04/18/24 Rx lisinopril 20 mg tablet 20 mg PO DAILY #90 tabs 12/20/23 04/18/24 Rx Beets Total 1 tab-cap PO DAILY 04/18/24 04/18/24 History biotin 10,000 mcg/mL (10 mg/mL) 10,000 mcg PO DAILY 04/18/24 04/18/24 History oral liquid fluticasone propionate 50 1 spray intranasal Q12H PRN Sinus 04/18/24 04/18/24 History mcg/act
--- NOTE | 2024-04-25 14:40 | WPDANESEPPF ---
Anes - Initial Pre Proc Eval Procedure: Operation Date: 04/26/24 07:30 Proposed Procedures p Left Total Knee Arthroplasty - Jacquse Palacios MD Date/Time: 04/25/24 14:40 Surgeon: Jacques Palacios MD Pre Op Diagnosis: oa left knee Patient Data Age: 78 Gender: F Height: 1.62 m Weight: 84 kg Last Vital Signs Temp 98.5 F 04/18/24 10:25 Pulse 69 04/18/24 10:25 Resp 16 04/18/24 10:25 BP 151/74 H 04/18/24 10:25 Pulse Ox 98 04/18/24 10:25 O2 Del Method Room Air 04/18/24 10:25 Allergies Allergy/AdvReac Type Severity Reaction Status Date / Time No Known Allergies Allergy Verified 04/18/24 11:23 Home Medications Medication Instructions Recorded Confirmed Type aspirin 81 mg tablet,delayed 81 mg PO DAILY 11/07/20 04/18/24 History release (Adult Aspirin Regimen) cholecalciferol (vitamin D3) 50 2,000 unit PO DAILY 06/30/23 04/18/24 History mcg (2,000 unit) tablet rosuvastatin 10 mg tablet 10 mg PO DAILY #90 tabs 06/30/23 04/18/24 Rx lisinopril 20 mg tablet 20 mg PO DAILY #90 tabs 12/20/23 04/18/24 Rx Beets Total 1 tab-cap PO DAILY 04/18/24 04/18/24 History biotin 10,000 mcg/mL (10 mg/mL) 10,000 mcg PO DAILY 04/18/24 04/18/24 History oral liquid fluticasone propionate 50 1 spray intranasal Q12H PRN Sinus 04/18/24 04/18/24 History mcg/actuation nasal Symptoms spray,suspension (Flonase Allergy Relief) ibuprofen 200 mg tablet (Advil) 400 mg PO Q6H PRN Pain 04/18/24 04/18/24 History frenmrup-augzlx-mycov extract 5 2 cap PO DAILY 04/18/24 04/18/24 History mg-6 mg-150 mg capsule (Fruit and Vegetable Daily) turmeric root extract 150 1 tablet PO DAILY 04/18/24 04/18/24 History mg-bella root extract 25 mg chewable tablet willow bark-red clover-borage 50 1 cap PO DAILY 04/18/24 04/18/24 History mg-25 mg-250 mg capsule rivaroxaban 10 mg tablet (Xarelto) 10 mg PO DAILY PE prophylaxis s/p 04/20/24 Rx joint replacement 10 days #10 tabs Results Review: All pre-operative results and documents have been reviewed as part of the pre-operative evaluation. [facility] Past Medical History Medical History (Updated 04/19/24 @ 14:57 by Ace Fan MD) Abnormal mammogram of right breast (11/29/23) mild asymmetry of the right breast on mammogram 11/29/2023 with need for additional views and ultrasound. Normal mammogram 12/29/2023. Actinic keratosis (~12/22/21) nose and left forearm Acute non-recurrent maxillary sinusitis At low risk for fall BMI 30.0-30.9,adult BMI 31.0-31.9,adult BMI 32.0-32.9,adult Breast adenoma Breast cancer screening by mammogram Breast pain, left (~03/2022) Chronic pain of left knee (~12/2023) severe tricompartmental osteoarthritis on x-ray in the ER 01/17/2024. Chronic serous otitis media of both ears COVID-19 vaccine series completed Dermatitis (06/12/22) left anterior chest Dysphagia Elevated hemoglobin A1c hemoglobin A1c 6.4 with normal glucose at 89 on 01/25/2024. glucose 84 with hemoglobin A1c 6.1 on 04/18/2024. Fibrocystic breast normal mammogram 06/25/2022 with recheck in 1 year. Headache Hypertension Left otitis media Mixed hyperlipidemia Total cholesterol 172, triglycerides 197, HDL 56 and LDL 87 on 05/13/2021. total cholesterol 184, triglycerides 202, HDL 58, LDL 92 on 06/21/2023. Cholesterol 165, triglycerides 190, HDL 54, LDL 79 on 01/25/2024. Non-healing skin lesion (~12/2023) left maxillary face 0.4 cm with shave biopsy 04/19/2024 Otalgia of left ear Otitis media Seasonal allergic rhinitis Vitamin D deficiency (~06/21/23) Level low at 22.9 on 06/21/2023. Surgical History Surgical History H/O coronary artery bypass surgery 6/22 Family History Family History Mother Depression Patient's mother is Father Patient's father is Family history of alcoh
[2024-04-26] VITALS (17 sets, daily range): BP systolic 138–168; BP diastolic 58–77; PULSE 66–84; RESP 12–18; TEMP 35.9–36.6; O2SAT 93–100
[2024-04-26] MEDS: ACETAMINOPHEN 500 MG TABLET 1000 MG PO (06:18)
[2024-04-26] MEDS: LACTATED RINGERS 1,000 ML 30 ML IV CONT ×2 (06:30→09:45)
[2024-04-26] MEDS: VANCOMYCIN 1,250 MG/NS 250 ML BAG 166.67 MG IVPB (06:34)
--- NOTE | 2024-04-26 06:57 | WPDHPUPDATE1 ---
History and Physical Update Update Date/Time: 04/26/24 06:57 History and Physical has been reviewed, including an updated exam of the patient. There are NO changes in the patient's condition. Risks, benefits, and alternatives have been discussed and questions answered. Patient agrees to proceed with procedure.
[2024-04-26] MEDS: TRANEXAMIC ACID 1,000MG/ISO100 1,000 MG/100 ML BAG 200 MG IVPB (07:09)
--- NOTE | 2024-04-26 07:16 | WPDANESEPPF ---
Anes - Initial Pre Proc Eval Procedure: Operation Date: 04/26/24 07:30 Proposed Procedures p Left Total Knee Arthroplasty - Jacques Palacios MD Date/Time: 04/26/24 07:16 Surgeon: Jacques Palacios MD Pre Op Diagnosis: oa left knee Patient Data Age: 78 Gender: F Height: 1.62 m Weight: 84.1 kg Last Vital Signs Temp 36.2 C L 04/26/24 06:36 Pulse 66 04/26/24 06:36 Resp 16 04/26/24 06:36 BP 151/60 H 04/26/24 06:36 Pulse Ox 96 04/26/24 06:36 O2 Del Method Room Air 04/26/24 06:36 Allergies Allergy/AdvReac Type Severity Reaction Status Date / Time No Known Allergies Allergy Verified 04/26/24 06:03 Home Medications Medication Instructions Recorded Confirmed Type aspirin 81 mg tablet,delayed 81 mg PO DAILY 11/07/20 04/26/24 History release (Adult Aspirin Regimen) cholecalciferol (vitamin D3) 50 2,000 unit PO DAILY 06/30/23 04/26/24 History mcg (2,000 unit) tablet rosuvastatin 10 mg tablet 10 mg PO DAILY #90 tabs 06/30/23 04/26/24 Rx lisinopril 20 mg tablet 20 mg PO DAILY #90 tabs 12/20/23 04/26/24 Rx Beets Total 1 tab-cap PO DAILY 04/18/24 04/26/24 History biotin 10,000 mcg/mL (10 mg/mL) 10,000 mcg PO DAILY 04/18/24 04/26/24 History oral liquid fluticasone propionate 50 1 spray intranasal Q12H PRN Sinus 04/18/24 04/26/24 History mcg/actuation nasal Symptoms spray,suspension (Flonase Allergy Relief) ibuprofen 200 mg tablet (Advil) 400 mg PO Q6H PRN Pain 04/18/24 04/26/24 History xaxmmtrz-bshaer-dcpcz extract 5 2 cap PO DAILY 04/18/24 04/26/24 History mg-6 mg-150 mg capsule (Fruit and Vegetable Daily) turmeric root extract 150 1 tablet PO DAILY 04/18/24 04/26/24 History mg-bella root extract 25 mg chewable tablet willow bark-red clover-borage 50 1 cap PO DAILY 04/18/24 04/26/24 History mg-25 mg-250 mg capsule rivaroxaban 10 mg tablet (Xarelto) 10 mg PO DAILY PE prophylaxis s/p 04/20/24 Rx joint replacement 10 days #10 tabs Patient hx anesthesia problems: none Family hx anesthesia problems: none Results Review: All pre-operative results and documents have been reviewed as part of the pre-operative evaluation. [facility] Past Medical History Medical History Abnormal mammogram of right breast (11/29/23) mild asymmetry of the right breast on mammogram 11/29/2023 with need for additional views and ultrasound. Normal mammogram 12/29/2023. Actinic keratosis (~12/22/21) nose and left forearm Acute non-recurrent maxillary sinusitis At low risk for fall BMI 30.0-30.9,adult BMI 31.0-31.9,adult BMI 32.0-32.9,adult Breast adenoma Breast cancer screening by mammogram Breast pain, left (~03/2022) Chronic pain of left knee (~12/2023) severe tricompartmental osteoarthritis on x-ray in the ER 01/17/2024. Chronic serous otitis media of both ears COVID-19 vaccine series completed Dermatitis (06/12/22) left anterior chest Dysphagia Elevated hemoglobin A1c hemoglobin A1c 6.4 with normal glucose at 89 on 01/25/2024. glucose 84 with hemoglobin A1c 6.1 on 04/18/2024. Fibrocystic breast normal mammogram 06/25/2022 with recheck in 1 year. Headache Hypertension Left otitis media Mixed hyperlipidemia Total cholesterol 172, triglycerides 197, HDL 56 and LDL 87 on 05/13/2021. total cholesterol 184, triglycerides 202, HDL 58, LDL 92 on 06/21/2023. Cholesterol 165, triglycerides 190, HDL 54, LDL 79 on 01/25/2024. Non-healing skin lesion (~12/2023) left maxillary face 0.4 cm with shave biopsy 04/19/2024 Otalgia of left ear Otitis media Seasonal allergic rhinitis Vitamin D deficiency (~06/21/23) Level low at 22.9 on 06/21/2023. Surgical History Surgical History H/O coronary artery bypass surgery 04/15 Family History Family History Mother Depression Patient's mother i
[2024-04-26] MEDS: ceFAZolin 2 GM/D5W 50 ML 2 GM/50 ML BAG IVPB ×2 (07:35→15:36)
--- NOTE | 2024-04-26 07:48 | WPDANESPNB ---
Anes - Peripheral Nerve Block Date/Time: 04/26/24 07:48 I have discussed with the patient/family/POA the placement of a peripheral nerve block for post-operative pain management, including associated risks, benefits, complications, and side effects. Alternative methods of post-operative analgesia were detailed. Questions were solicited and answers provided to the satisfaction of the patient/family/POA. Time-Out: A pre-procedural Time-Out was completed immediately before starting the procedure and confirmed: Patient Identification, Site, Procedure, Patient Position and the Availability of Requisite Equipment. Clinical Indications: Acute post-operative pain management requested by the operative surgeon. Nerve Block Insertion Note Anes-nerve block: adductor canal left Patient position: supine Skin prep: chlorhexidine Needle: 22 gauge, stimulating, insulated echogenic needle. Needle length: 120 mm Technique: ultrasound Technique comment: fent 75mcg Injectate: bupivacaine 0.5% with epi 5 mcg/ml (30ml no epi) and dexamethasone (mg) (4) Observations: tolerated well Complications: none Procedure start time:: 724 Procedure end time:: 731
[2024-04-26] MEDS: SODIUM CHLORIDE 0.9% IV 37.7 ML, MORPHINE SULFATE INJ (*CRX) 2 MG, ROPivacaine HCL 1% 2... INFILTRATE (08:06)
[2024-04-26] MEDS: GENTAMICIN BONE CEMENT REFOBACIN 1 EACH TOPICAL (08:41)
--- NOTE | 2024-04-26 09:13 | P.OP_ITS ---
Procedure Note - Detailed Date of Procedure 04/26/24 Pre-op Diagnosis Osteoarthritis LEFT knee Post-op Diagnosis Same Procedure Performed LEFT total knee arthroplasty Surgeon Jacques Palacios MD Surgical Garment Inspector Richard Anesthesia General Indications Pain and Arthritis Description of Procedure The patient was brought to operating room #8. A general anesthetic was administered. Placed on the operating table and sterilely prepped and draped in usual manner. A longitudinal incision was made. Tourniquet inflated to 300 mmHg for a total of 57 minutes. Dissection was carried down to the fascia. Medial parapatellar incision was made and the patella subluxated laterally. Patella cut from 23 to 15 mm and sized for a 34 mm button. The tibia was cut perpendicular to the long axis and femur cut in 5 degrees of valgus. A 62.5 femur trialed. 63 tibia was felt to fit the best. The soft tissues balanced, hemostasis obtained. All [address], 63 tibia, 62.5 femur, 34 mm patella, and 10 mm poly. Motion was 0-125 degrees with good stability in both flexion and extension. The wound was closed with #2 Vicryl, 2- 0 Vicryl and jose rafael. [employer] Estimated Blood Loss 200 Drains No Packing No Pathology None sent Complications No immediate complications Condition Stable Disposition PACU [facility] Billing Surgery - Charge Forward: Surgery Billing ([id number] Total Knee)
[2024-04-26] MEDS: fentaNYL CITRATE INJ (*CRX) 100 MCG/2 ML VIAL 25 MCG IV PUSH ×7 (09:56→10:29)
[2024-04-26] MEDS: HYDROmorphone HCL INJ (*CRX) 1 MG/ML SYR 0.5 MG IV PUSH (10:57)
--- NOTE | 2024-04-26 11:00 | SUR.PHASEI ---
Patient meets PACU discharge criteria, unit bed unavailable at this time. Patient placed in extended recovery status.
[2024-04-26] MEDS: ONDANSETRON INJ 4 MG/2 ML VIAL IV PUSH ×3 (11:23→19:52)
--- NOTE | 2024-04-26 12:00 | ADMGEN ---
This patient, Carly Kumar, was admitted to Medical Room 243-01. Patient/family oriented to hospital policies and general routines including ID bracelet, bed and alarms, visiting hours, pain management, procedures, bathroom and other care routines, personal items, smoking policy, room service/diet, and visiting hours. Information on how to activate the Rapid Response Team has been discussed. Patient/Family are encouraged to report perceived risks to care and to ask questions if they do not understand what they are told or what they should do.
[2024-04-26] MEDS: SODIUM CHLORIDE 0.9% IV 1,000 ML 125 ML IV CONT ×2 (13:04→20:44)
--- NOTE | 2024-04-26 14:36 | PCPTNOTE ---
Attempted PT evaluation, pt refused due to nausea. RN aware. Will follow.
[2024-04-26] MEDS: RIVAROXABAN 10 MG TABLET PO (16:21)
[2024-04-26] MEDS: CELECOXIB 200 MG CAPSULE PO (16:21)
[2024-04-26] MEDS: HYDROmorphone HCL INJ (*CRX) 1 MG/ML SYR IV PUSH (20:43)
--- NOTE | ~2024-04-27 | XR_ITS ---
EXAMINATION: [id number] DATE: 04/26/2024 10:05 INDICATION: Total left knee arthroplasty. Postop. TECHNIQUE: 2 views of left knee were obtained. COMPARISON: None. FINDINGS: There is a total left knee arthroplasty with patellar resurfacing in near-anatomic alignmen t. No fracture. There is gas in the knee joint and soft tissues, consistent with recent surgery. Ante rior skin jose rafael are noted. IMPRESSION: 1. Total left knee arthroplasty in near-anatomic alignment. Reviewed, dictated and finalized at location A.
[2024-04-27] MEDS: ceFAZolin 2 GM/D5W 50 ML 2 GM/50 ML BAG IVPB ×2 (00:41→08:26)
[2024-04-27 01:19] VITALS: BP 123/52; PULSE 81; RESP 18; TEMP 36.6; O2SAT 96
[2024-04-27] MEDS: IBUPROFEN IV 800 MG/200 ML 800 MG/200 ML BAG 400 MG IVPB (04:08)
[2024-04-27] MEDS: SODIUM CHLORIDE 0.9% IV 1,000 ML 125 ML IV CONT (04:23)
[2024-04-27 05:13] VITALS: BP 112/50; PULSE 84; RESP 17; TEMP 36.7; O2SAT 94
[2024-04-27 05:20] LABS: Basophils Percent Auto 0.1 % (0.2-1.2); Hematocrit 27.8 % (37.0-47.0); Hemoglobin 9.3 g/dL (12.0-15.0); Immature Granulocyte Absolute 0.05 K/mm3 (0.00-0.031); Immature Granulocyte Percent A 0.4 % (0-0.5); Lymphocytes Absolute Auto 1.26 K/mm3 (0.9-3.2); Lymphocytes Percent Auto 9.5 % (18.3-44.2); Mean Corpuscular HGB Conc 33.5 g/dl (32-36); Mean Corpuscular Hemoglobin 30.9 pg (26-34); Mean Corpuscular Volume 92.4 fl (80-100); Mean Platelet Volume 10.5 fl (7.4-10.4); Monocytes Absolute Auto 1.2 K/mm3 (0.1-0.6); Neutrophils Absolute Auto 10.8 K/mm3 (1.3-6.7); Platelet Count Result 194 k/mm3 (150-375); Red Blood Count 3.01 M/mm3 (4.2-5.4); Red Cell Distribution Width 13.4 % (11.5-14.5); White Blood Count 13.3 K/mm3 (4.5-10.0)
[2024-04-27 05:31] LABS: Anion Gap 7 mmol/L (4-12); Blood Urea Nitrogen 13 mg/dL (7-17); Carbon Dioxide 23 mmol/L (22-30); Chloride 107 mmol/L (98-107); Estimated CRCL calculation 60 ml/min; Estimated Glomerular Filt Rate > 60; Glucose 117 mg/dL (65-110); Potassium 3.9 mmol/L (3.4-5.0); Sodium 137 mmol/L (137-145)
--- NOTE | 2024-04-27 07:32 | PM.PNORT ---
Progress Note: A&P Assessment and Plan (1) History of knee replacement procedure of left knee: Code(s): Z96.652 - Presence of left artificial knee joint Status: Acute Assessment and Plan: S/P TKA Left. Had difficulty with Nausea and Vomiting. Better this morning. Will ambulate today. Subjective Subjective Date/Time Seen: 04/27/24 07:32 Post Op day: 1 Principal diagnosis: Left Total Knee for Osteoarthritis Review of Systems Musculoskeletal: Musculoskeletal: Reports arthralgias, Reports joint swelling and Reports stiffness Exam Narrative: NVI Wiggles toes Dressing intact Objective Data Vital Signs Vital Signs: Vital Signs - 24 hr 04/26/24 09:45 04/26/24 10:00 04/26/24 10:15 Temperature 97.9 F Pulse Rate 83 84 79 Respiratory Rate 14 16 12 Blood Pressure 155/67 H 160/68 H 156/68 H Pulse Oximetry 100 100 93 Oxygen Delivery Simple Face Mask Simple Face Mask Nasal Cannula Oxygen Flow Rate 8 8 2 04/26/24 10:30 04/26/24 10:45 04/26/24 11:00 Temperature Pulse Rate 75 73 66 Respiratory Rate 12 12 12 Blood Pressure 150/72 H 149/77 H 145/64 H Pulse Oximetry 98 97 98 Oxygen Delivery Nasal Cannula Nasal Cannula Nasal Cannula Oxygen Flow Rate 2 2 2 04/26/24 11:15 04/26/24 11:30 04/26/24 12:15 Temperature 97.3 F L Pulse Rate 73 71 76 Respiratory Rate 12 12 14 Blood Pressure 138/72 143/65 H 168/69 H Pulse Oximetry 99 97 95 Oxygen Delivery Nasal Cannula Nasal Cannula Oxygen Flow Rate 2 2 04/26/24 12:30 04/26/24 13:11 04/26/24 12:10 Temperature 97.3 F L 97.4 F L Pulse Rate 66 71 Respiratory Rate 14 14 14 Blood Pressure 148/64 H 150/64 H Pulse Oximetry 100 100 100 Oxygen Delivery Nasal Cannula Oxygen Flow Rate 3 04/26/24 14:20 04/26/24 17:30 04/26/24 21:19 Temperature 97.7 F 97.2 F L 96.7 F L Pulse Rate 76 75 79 Respiratory Rate 14 14 18 Blood Pressure 142/61 H 141/58 H 150/65 H Pulse Oximetry 97 99 96 Oxygen Delivery Oxygen Flow Rate 04/27/24 01:19 04/26/24 20:00 04/27/24 05:13 Temperature 97.8 F 98.1 F Pulse Rate 81 81 84 Respiratory Rate 18 18 17 Blood Pressure 123/52 L 112/50 L Pulse Oximetry 96 96 94 Oxygen Delivery Room Air Oxygen Flow Rate Intake/Output Intake/Output: Intake & Output 04/24/24 04/25/24 04/26/24 04/27/24 23:59 23:59 23:59 23:59 Intake Total 1684.6 1056.3 Output Total 280 Balance 1404.6 1056.3 Meds/Results Medications: Active Medications Generic Name Dose Route Start Last Admin Trade Name Freq PRN Reason Stop Dose Admin Hydrocodone Bitart/Acetaminophen 1 tab 04/26/24 11:45 Hydrocodone/Acetaminophen (*Crx) 5-325 Mg Tablet PO Q4H PRN Pain Rated 4-6 Hydrocodone Bitart/Acetaminophen 1 tab 04/26/24 11:45 Hydrocodone/Acetaminophen (*Crx) 7.5-325 Mg Tablet PO Q4H PRN Pain Rated 7-10 Aspirin 81 mg 04/27/24 09:00 Aspirin 81 Mg Enteric Tablet PO DAILY JAQUELIN Celecoxib 200 mg 04/26/24 17:00 04/26/24 16:21 Celecoxib 200 Mg Capsule PO 200 mg BIDWM JAQUELIN Administration Diphenhydramine HCl 25 mg 04/26/24 11:45 Diphenhydramine Hcl Inj 50 Mg/Ml Vial IV PUSH Q6H PRN Itching Hydromorphone HCl 1 mg 04/26/24 11:45 04/26/24 20:43 Hydromorphone Hcl Inj (*Crx) 1 Mg/Ml Syr IV PUSH 1 mg Q2H PRN Administration Breakthrough Pain Rated 7-10 or NPO Hydromorphone HCl 0.5 mg 04/26/24 11:45 Hydromorphone Hcl Inj (*Crx) 1 Mg/Ml Syr IV PUSH Q2H PRN Breakthrough Pain Rated 4-6 or NPO Ibuprofen 800 mg in 200 mls @ 400 mls/hr 04/26/24 11:45 04/27/24 04:08 Caldolor 800 Mg/200 Ml IVPB 400 mls/hr Q6H PRN Administration Breakthrough Pain Rated 1-3 or NPO Cefazolin Sodium 2 gm in 50 mls @ 100 mls/hr 04/26/24 16:00 04/27/24 00:41 Ancef 2 Gm/D5w 50 Ml IVPB 04/27/24 08:29 100 mls/hr Q8H JAQUELIN Administration Sodium Chloride 1,000 mls @ 125 mls/hr 04/26/24 20:20 04/27/24 04:23 Normal Saline Iv
--- NOTE | 2024-04-27 07:36 | PM.IMPN ---
Subjective Date/time seen: 04/27/24 07:36 Objective Data Vital Signs Vital Signs: Vital Signs - 24 hr 04/26/24 09:45 04/26/24 10:00 04/26/24 10:15 Temperature 97.9 F Pulse Rate 83 84 79 Respiratory Rate 14 16 12 Blood Pressure 155/67 H 160/68 H 156/68 H Pulse Oximetry 100 100 93 Oxygen Delivery Simple Face Mask Simple Face Mask Nasal Cannula Oxygen Flow Rate 8 8 2 04/26/24 10:30 04/26/24 10:45 04/26/24 11:00 Temperature Pulse Rate 75 73 66 Respiratory Rate 12 12 12 Blood Pressure 150/72 H 149/77 H 145/64 H Pulse Oximetry 98 97 98 Oxygen Delivery Nasal Cannula Nasal Cannula Nasal Cannula Oxygen Flow Rate 2 2 2 04/26/24 11:15 04/26/24 11:30 04/26/24 12:15 Temperature 97.3 F L Pulse Rate 73 71 76 Respiratory Rate 12 12 14 Blood Pressure 138/72 143/65 H 168/69 H Pulse Oximetry 99 97 95 Oxygen Delivery Nasal Cannula Nasal Cannula Oxygen Flow Rate 2 2 04/26/24 12:30 04/26/24 13:11 04/26/24 12:10 Temperature 97.3 F L 97.4 F L Pulse Rate 66 71 Respiratory Rate 14 14 14 Blood Pressure 148/64 H 150/64 H Pulse Oximetry 100 100 100 Oxygen Delivery Nasal Cannula Oxygen Flow Rate 3 04/26/24 14:20 04/26/24 17:30 04/26/24 21:19 Temperature 97.7 F 97.2 F L 96.7 F L Pulse Rate 76 75 79 Respiratory Rate 14 14 18 Blood Pressure 142/61 H 141/58 H 150/65 H Pulse Oximetry 97 99 96 Oxygen Delivery Oxygen Flow Rate 04/27/24 01:19 04/26/24 20:00 04/27/24 05:13 Temperature 97.8 F 98.1 F Pulse Rate 81 81 84 Respiratory Rate 18 18 17 Blood Pressure 123/52 L 112/50 L Pulse Oximetry 96 96 94 Oxygen Delivery Room Air Oxygen Flow Rate Intake/Output Intake/Output: Intake & Output 04/24/24 04/25/24 04/26/24 04/27/24 23:59 23:59 23:59 23:59 Intake Total 1684.6 1056.3 Output Total 280 Balance 1404.6 1056.3 Meds/Results Medications: Active Medications Generic Name Dose Route Start Last Admin Trade Name Freq PRN Reason Stop Dose Admin Hydrocodone Bitart/Acetaminophen 1 tab 04/26/24 11:45 Hydrocodone/Acetaminophen (*Crx) 5-325 Mg Tablet PO Q4H PRN Pain Rated 4-6 Hydrocodone Bitart/Acetaminophen 1 tab 04/26/24 11:45 Hydrocodone/Acetaminophen (*Crx) 7.5-325 Mg Tablet PO Q4H PRN Pain Rated 7-10 Aspirin 81 mg 04/27/24 09:00 Aspirin 81 Mg Enteric Tablet PO DAILY JAQUELIN Celecoxib 200 mg 04/26/24 17:00 04/26/24 16:21 Celecoxib 200 Mg Capsule PO 200 mg BIDWM JAQUELIN Administration Diphenhydramine HCl 25 mg 04/26/24 11:45 Diphenhydramine Hcl Inj 50 Mg/Ml Vial IV PUSH Q6H PRN Itching Hydromorphone HCl 1 mg 04/26/24 11:45 04/26/24 20:43 Hydromorphone Hcl Inj (*Crx) 1 Mg/Ml Syr IV PUSH 1 mg Q2H PRN Administration Breakthrough Pain Rated 7-10 or NPO Hydromorphone HCl 0.5 mg 04/26/24 11:45 Hydromorphone Hcl Inj (*Crx) 1 Mg/Ml Syr IV PUSH Q2H PRN Breakthrough Pain Rated 4-6 or NPO Ibuprofen 800 mg in 200 mls @ 400 mls/hr 04/26/24 11:45 04/27/24 04:08 Caldolor 800 Mg/200 Ml IVPB 400 mls/hr Q6H PRN Administration Breakthrough Pain Rated 1-3 or NPO Cefazolin Sodium 2 gm in 50 mls @ 100 mls/hr 04/26/24 16:00 04/27/24 00:41 Ancef 2 Gm/D5w 50 Ml IVPB 04/27/24 08:29 100 mls/hr Q8H JAQUELIN Administration Sodium Chloride 1,000 mls @ 125 mls/hr 04/26/24 20:20 04/27/24 04:23 Normal Saline Iv IV CONT 125 mls/hr .Q8H JAQUELIN Administration Lisinopril 20 mg 04/27/24 09:00 Lisinopril 20 Mg Tablet PO DAILY JAQUELIN Naloxone HCl 0.1 mg 04/26/24 11:45 Naloxone Hcl 0.4 Mg/Ml Vial IV PUSH Q2M PRN Opiate Reversal Ondansetron HCl 4 mg 04/26/24 11:45 04/26/24 19:52 Ondansetron Inj 4 Mg/2 Ml Vial IV PUSH 4 mg Q4H PRN Administration Nausea And Vomiting Polyethylene Glycol 17 gm 04/27/24 09:00 Polyethylene Glycol 3350 17 Gm Powd.Pack PO QAM [facility] Rivaroxaban 10 mg 04/26/24 17:00 04/26/24 16:21 Rivaroxaban 10 Mg
--- NOTE | 2024-04-27 07:37 | PM.IMCN ---
Assessment and Plan Assessment and plan (1) History of knee replacement procedure of left knee: Code(s): Z96.652 - Presence of left artificial knee joint Status: Acute Assessment and Plan: -S/P left TKA 04/[address] Palacios - Had difficulty with Nausea and Vomiting- improved now - work with PT/OT today (2) Elevated hemoglobin A1c: Code(s): R73.09 - Other abnormal glucose Status: Acute Assessment and Plan: - hga1c 6.1 on 04/18/24 - monitor BS- will ass sliding scale if elevated (3) Mixed hyperlipidemia: Code(s): E78.2 - Mixed hyperlipidemia Status: Acute Assessment and Plan: -continue home rosuvastatin (4) Hypertension: Qualifiers: Hypertension type: primary hypertension Qualified Code(s): I10 - Essential (primary) hypertension Code(s): I10 - Essential (primary) hypertension Status: Acute Assessment and Plan: - continue home lisinopril - BP reviewed and stable Plan - xarelto per ortho - pain mngm per ortho - Bowel regimen ordered prior- miralax HPI Date of Consult Consult date: 04/27/24 Requesting Physician: Jacques Palacios MD Primary Care Provider: Ace Fan MD Family Provider: Mita Bello Consult Narrative Reason for consult: LKR 04/26 Dr Palacios Narrative: Carly Kumar is a 78 year old female failed outpt knee pain tx and had LKR 04/27/24. her PMH: actinic keratosis, breast adenoma, prediabetes, HTN, HLD, vit D deficiency. She had a h/o CABG 04/15. She is a non smoker, non drinker. Pt is seen and examined. She had some nausea overnight but better this am. BP reviewed and stable. WBC slightly up this am. Will ensure she does her IS and works with PT/OT. She has a h/o prediabetes- so will monitor BS closely. Review of Systems Constitutional: Constitutional: Denies chills and Denies fatigue Eyes: Eyes: Denies blurry vision Cardiovascular: Cardiovascular: Denies chest pain Respiratory: Respiratory: Denies chest congestion and Denies cough Musculoskeletal: Musculoskeletal: Denies back pain Integumentary/Breasts: Skin/Breast: Reports erythema Neurologic: Denies confusion Psychiatric: Psychiatric: Denies depression PMFSH Past Medical History Medical History Abnormal mammogram of right breast (11/29/23) mild asymmetry of the right breast on mammogram 11/29/2023 with need for additional views and ultrasound. Normal mammogram 12/29/2023. Actinic keratosis (~12/22/21) nose and left forearm Acute non-recurrent maxillary sinusitis At low risk for fall BMI 30.0-30.9,adult BMI 31.0-31.9,adult BMI 32.0-32.9,adult Breast adenoma Breast cancer screening by mammogram Breast pain, left (~03/2022) Chronic pain of left knee (~12/2023) left knee arthroplasty 04/26/2024. severe tricompartmental osteoarthritis on x-ray in the ER 01/17/2024. Chronic serous otitis media of both ears COVID-19 vaccine series completed Dermatitis (06/12/22) left anterior chest Dysphagia Elevated hemoglobin A1c hemoglobin A1c 6.4 with normal glucose at 89 on 01/25/2024. glucose 84 with hemoglobin A1c 6.1 on 04/18/2024. Fibrocystic breast normal mammogram 06/25/2022 with recheck in 1 year. Headache Hypertension Left otitis media Mixed hyperlipidemia Total cholesterol 172, triglycerides 197, HDL 56 and LDL 87 on 05/13/2021. total cholesterol 184, triglycerides 202, HDL 58, LDL 92 on 06/21/2023. Cholesterol 165, triglycerides 190, HDL 54, LDL 79 on 01/25/2024. Non-healing skin lesion (~12/2023) left maxillary face 0.4 cm with shave biopsy 04/19/2024 Osteoarthritis of left knee Otalgia of left ear Otitis media Seasonal allergic rhinitis Vitamin D deficiency (~06/21/23) Level low at 22.9 on 06/21/2023. Surgical History Surgical History H/O coronary artery bypass surgery 04/15 Family History Family H
[2024-04-27] MEDS: ASPIRIN 81 MG ENTERIC TABLET PO (08:25)
[2024-04-27] MEDS: CELECOXIB 200 MG CAPSULE PO ×2 (08:25→17:02)
[2024-04-27] MEDS: SENNA/DOCUSATE SODIUM TABLET 2 TAB PO ×2 (08:25→17:01)
[2024-04-27] MEDS: ROSUVASTATIN 10 MG TABLET PO (08:26)
[2024-04-27] MEDS: lisinopriL 20 MG TABLET PO (08:26)
--- NOTE | 2024-04-27 09:24 | PCOTNOTE ---
Attempted to see pt. for occupational therapy treatment. Pt. declined at this time, requesting to return to bed and not participate in this time.
[2024-04-27] MEDS: HYDROcodone/acetaminophen (*CRX) 5-325 MG TABLET 1 TAB PO ×3 (09:36→23:03)
[2024-04-27 11:11] VITALS: BP 135/53; PULSE 67; RESP 20; TEMP 36.1; O2SAT 95
--- NOTE | 2024-04-27 13:05 | WPDANESPN ---
Anes - Prog Note Post-Op Date/Time: 04/27/24 13:05 Cardiovascular status: normal Respiratory status: normal Airway patency: baseline Mental status: baseline Post-Op hydration status: normal Vital Signs: Last Vital Signs Temp 36.1 C L 04/27/24 11:11 Pulse 67 04/27/24 11:11 Resp 20 04/27/24 11:11 BP 135/53 L 04/27/24 11:11 Pulse Ox 95 04/27/24 11:11 O2 Del Method Room Air 04/27/24 08:00 O2 Flow Rate 3 04/26/24 12:10 Pain Score (VAS): 01/01 I/O: Intake & Output 04/26/24 04/27/24 04/27/24 23:59 07:59 15:59 Intake Total 170 1106.3 0 Output Total 250 Balance -80 1106.3 0 Laboratory Tests 04/27/24 04:31 04/27/24 04:31 04/27/24 04:31 WBC 13.3 H RBC 3.01 L Hgb 9.3 L Hct 27.8 L MCV 92.4 MCH 30.9 MCHC 33.5 RDW 13.4 Plt Count 194 MPV 10.5 H Immature Gran % (Auto) 0.4 Neut % (Auto) 81.0 H Lymph % (Auto) 9.5 L [place] % (Auto) 9.0 H Eos % (Auto) 0.0 Baso % (Auto) 0.1 L Lymph # (Auto) 1.26 [place] # (Auto) 1.2 H Eos # (Auto) 0.0 Baso # (Auto) 0.0 Abs Immat Gran (auto) 0.05 H Absolute Neuts (auto) 10.8 H Absolute Nucleated RBC 0.000 Nucleated RBC % 0.0 Sodium 137 Potassium 3.9 Chloride 107 Carbon Dioxide 23 Anion Gap 7 BUN 13 Creatinine 0.70 Estim Creat Clear Calc 60 Estimated GFR > 60 Glucose 117 H Calcium 8.0 L Post-procedural complaints: nausea (Patient states severe nausea after anesthesia yesterday, but has resolved today. ) Patient Feedback: Patient satisfied with anesthetic care.
[2024-04-27 16:11] VITALS: BP 133/53; PULSE 71; RESP 16; TEMP 36.2; O2SAT 96
[2024-04-27] MEDS: RIVAROXABAN 10 MG TABLET PO (17:01)
[2024-04-27 20:31] VITALS: BP 131/54; PULSE 77; RESP 18; TEMP 37.2; O2SAT 94
[2024-04-27 21:02] VITALS: O2SAT 94
[2024-04-28] MEDS: HYDROcodone/acetaminophen (*CRX) 5-325 MG TABLET 1 TAB PO ×2 (04:38→08:45)
[2024-04-28 06:25] LABS: Hematocrit 28.2 % (37.0-47.0); Hemoglobin 9.1 g/dL (12.0-15.0); Mean Corpuscular HGB Conc 32.3 g/dl (32-36); Mean Corpuscular Hemoglobin 30.4 pg (26-34); Mean Corpuscular Volume 94.3 fl (80-100); Platelet Count Result 177 k/mm3 (150-375); Red Blood Count 2.99 M/mm3 (4.2-5.4); White Blood Count 11.2 K/mm3 (4.5-10.0)
[2024-04-28 06:35] LABS: Anion Gap 3 mmol/L (4-12); Blood Urea Nitrogen 13 mg/dL (7-17); Calcium 8.4 mg/dL (8.4-10.2); Carbon Dioxide 27 mmol/L (22-30); Chloride 111 mmol/L (98-107); Estimated CRCL calculation 60 ml/min; Estimated Glomerular Filt Rate > 60; Glucose 91 mg/dL (65-110); Potassium 3.8 mmol/L (3.4-5.0); Sodium 141 mmol/L (137-145)
--- NOTE | 2024-04-28 06:51 | PM.PNORT ---
Progress Note: A&P Assessment and Plan (1) History of knee replacement procedure of left knee: Code(s): Z96.652 - Presence of left artificial knee joint Status: Acute Assessment and Plan: Patient underwent total knee arthroplasty for osteoarthritis per she had a difficult time and to surgery nausea and vomiting for 24 hours per in the same a mg of bed and she looks better today. I think it is safe to send her home with this time. Follow-up tender 14 days for sutures out. Subjective Subjective Date/Time Seen: 04/28/24 06:51 Post Op day: 2 Principal diagnosis: Left total knee arthroplasty for osteoarthritis Review of Systems Musculoskeletal: Musculoskeletal: Reports arthralgias, Reports joint swelling and Reports stiffness Exam Narrative: Patient moved to leg well. Neurologically she is grossly intact. The dressing is dry. Objective Data Vital Signs Vital Signs: Vital Signs - 24 hr 04/27/24 07:41 04/27/24 11:11 04/27/24 08:00 Temperature 97 F L Pulse Rate 67 Respiratory Rate 20 Blood Pressure 135/53 L Pulse Oximetry 95 Oxygen Delivery Room Air Room Air 04/27/24 15:17 04/27/24 16:11 04/27/24 20:31 Temperature 97.1 F L 99.0 F Pulse Rate 71 77 Respiratory Rate 16 18 Blood Pressure 133/53 L 131/54 L Pulse Oximetry 96 94 Oxygen Delivery Room Air 04/27/24 21:02 Temperature Pulse Rate Respiratory Rate Blood Pressure Pulse Oximetry 94 Oxygen Delivery Room Air Intake/Output Intake/Output: Intake & Output 04/25/24 04/26/24 04/27/24 04/28/24 23:59 23:59 23:59 23:59 Intake Total 1684.6 1406.3 400 Output Total 280 Balance 1404.6 1406.3 400 Meds/Results Medications: Active Medications Generic Name Dose Route Start Last Admin Trade Name Freq PRN Reason Stop Dose Admin Hydrocodone Bitart/Acetaminophen 1 tab 04/26/24 11:45 04/28/24 04:38 Hydrocodone/Acetaminophen (*Crx) 5-325 Mg Tablet PO 1 tab Q4H PRN Administration Pain Rated 4-6 Hydrocodone Bitart/Acetaminophen 1 tab 04/26/24 11:45 Hydrocodone/Acetaminophen (*Crx) 7.5-325 Mg Tablet PO Q4H PRN Pain Rated 7-10 Aspirin 81 mg 04/27/24 09:00 04/27/24 08:25 Aspirin 81 Mg Enteric Tablet PO 81 mg DAILY JAQUELIN Administration Celecoxib 200 mg 04/26/24 17:00 04/27/24 17:02 Celecoxib 200 Mg Capsule PO 200 mg BIDWM JAQUELIN Administration Diphenhydramine HCl 25 mg 04/26/24 11:45 Diphenhydramine Hcl Inj 50 Mg/Ml Vial IV PUSH Q6H PRN Itching Hydromorphone HCl 1 mg 04/26/24 11:45 04/26/24 20:43 Hydromorphone Hcl Inj (*Crx) 1 Mg/Ml Syr IV PUSH 1 mg Q2H PRN Administration Breakthrough Pain Rated 7-10 or NPO Hydromorphone HCl 0.5 mg 04/26/24 11:45 Hydromorphone Hcl Inj (*Crx) 1 Mg/Ml Syr IV PUSH Q2H PRN Breakthrough Pain Rated 4-6 or NPO Ibuprofen 800 mg in 200 mls @ 400 mls/hr 04/26/24 11:45 04/27/24 04:08 Caldolor 800 Mg/200 Ml IVPB 400 mls/hr Q6H PRN Administration Breakthrough Pain Rated 1-3 or NPO Lisinopril 20 mg 04/27/24 09:00 04/27/24 08:26 Lisinopril 20 Mg Tablet PO 20 mg DAILY JAQUELIN Administration Naloxone HCl 0.1 mg 04/26/24 11:45 Naloxone Hcl 0.4 Mg/Ml Vial IV PUSH Q2M PRN Opiate Reversal Ondansetron HCl 4 mg 04/26/24 11:45 04/26/24 19:52 Ondansetron Inj 4 Mg/2 Ml Vial IV PUSH 4 mg Q4H PRN Administration Nausea And Vomiting Polyethylene Glycol 17 gm 04/27/24 09:00 04/27/24 08:26 Polyethylene Glycol 3350 17 Gm Powd.Pack PO Not Given QAM [facility] Rivaroxaban 10 mg 04/26/24 17:00 04/27/24 17:01 Rivaroxaban 10 Mg Tablet PO 05/07/24 17:01 10 mg DAILY@17 JAQUELIN Administration Rosuvastatin Calcium 10 mg 04/27/24 09:00 04/27/24 08:26 Rosuvastatin 10 Mg Tablet PO 10 mg DAILY JAQUELIN Administration Senna/Docusate Sodium 2 tab 04/26/24 17:00 04/27/24 17:01 Senna/Docusate Sodium Tablet PO 2 tab BID JAQUELIN Adminis
--- NOTE | 2024-04-28 06:53 | PM.DS ---
DS: Admitting Diagnosis Discharge Date 04/26/2024 Admitting Diagnosis Osteoarthritis left knee. DS: Discharge Diagnosis Discharge Diagnosis (1) History of knee replacement procedure of left knee: Code(s): Z96.652 - Presence of left artificial knee joint Status: Acute Assessment and Plan: Patient is status post total knee arthroplasty for osteoarthritis of the left knee. DS: Summary Hospital Course Hospital Course: Patient had prolonged hospital course because of significant nausea and vomiting. You could keep any fluids down for the 1st day. This is a made at this time and I believe it is safe to send her home. She is able to bear weight on the leg removed. An incision is clean the dressing is dry impaired and this vessel at the apparent distress medication Grandy, Xarelto, and Doxycycline. Time Spent with Patient Time attestation: Total time spent providing and/or coordinating discharge services: Exam Narrative: Her wound was clean. Patient is able and ambulate. Neurologically she seems to be intact. Eyes: General: appearance normal, both eyes and all related structures Neck: Neck: supple Resp: Effort & Inspection: normal respiratory effort Cardio: Rate: regular rate Rhythm: regular rhythm DS: Data Data Completed and Pending Labs on day of discharge: Labs from last 24 hours 04/28/24 06:09 WBC 11.2 H RBC 2.99 L Hgb 9.1 L Hct 28.2 L MCV 94.3 MCH 30.4 MCHC 32.3 RDW 14.0 Plt Count 177 MPV 10.0 Sodium 141 Potassium 3.8 Chloride 111 H Carbon Dioxide 27 Anion Gap 3 L BUN 13 Creatinine 0.70 Estim Creat Clear Calc 60 Estimated GFR > 60 Glucose 91 Calcium 8.4 Discharge Plan Discharge Attending physician on discharge: Jacques Palacios Consulting providers: Everette Delgado Discharging Clinician: Jacques Palacios Patient Disposition: Home Health Service Activity: no straining Diet: as tolerated and regular Patient Instructions: Antibiotic Form Stand Alone Forms: General Discharge Information Follow-up/Referrals: Jacques Palacios MD [Physician] - Discharge Medications: New hydrocodone-acetaminophen 7.5-325 mg tablet 1 tablet PO Q4H PRN (Reason: pain) Qty: 40 0RF doxycycline hyclate 100 mg tablet 100 mg PO DAILY Qty: 10 0RF Continued aspirin [Adult Aspirin Regimen] 81 mg tablet,delayed release (DR/EC) 81 mg PO DAILY rosuvastatin 10 mg tablet 10 mg PO DAILY Qty: 90 3RF cholecalciferol (vitamin D3) 50 mcg (2,000 unit) tablet 2,000 unit PO DAILY Fruit and Vegetable Daily 5-6-150 mg Capsule 2 cap PO DAILY turmeric root-bella root ext 150-25 mg Tablet,Chewable 1 tablet PO DAILY biotin 10,000 mcg/mL Liquid 10,000 mcg PO DAILY Beets Total 1 tab-cap PO DAILY Jointgel 50-25-250 mg Capsule 1 cap PO DAILY fluticasone propionate [Flonase Allergy Relief] 50 mcg/actuation spray,suspension 1 spray intranasal Q12H PRN (Reason: Sinus Symptoms) Rx Instructions: administer into each nostril ibuprofen [Advil] 200 mg Tablet 400 mg PO Q6H PRN (Reason: Pain) lisinopril 20 mg tablet 20 mg PO DAILY Qty: 90 3RF Rx Instructions: IN AM Xarelto 10 mg tablet 10 mg PO DAILY 10 Days Qty: 10 0RF Rx Instructions: Take 1 tab daily x 10 days beginning day AFTER surgery Date of admission: 04/27/24 16:34 Primary Care Provider: Ace Fan Admitting Provider: Jacques Palacios Attending physician on admission: Jacques Palacios Condition: Improved
[2024-04-28] MEDS: ROSUVASTATIN 10 MG TABLET PO (08:44)
[2024-04-28] MEDS: CELECOXIB 200 MG CAPSULE PO (08:44)
[2024-04-28] MEDS: ASPIRIN 81 MG ENTERIC TABLET PO (08:44)
[2024-04-28] MEDS: lisinopriL 20 MG TABLET PO (08:45)
[2024-04-28] MEDS: polyethylene glycoL 3350 17 GM POWD.PACK PO (08:45)
[2024-04-28] MEDS: SENNA/DOCUSATE SODIUM TABLET 2 TAB PO (08:45)
== END 2024-04-28 11:45 | disposition home health service (06) ==
LOC: ANHSURGERY 17:17 → ANH2MED 17:17
PROVIDERS: Nurse Practitioner; Admitting Provider Orthopaedic Surgery; PCP Family Medicine; Visit Provider Orthopaedic Surgery
PROC: (CPT 27447; principal; 2024-04-26 07:30)
DX: M17.12 Unilateral primary osteoarthritis, left knee (principal); R11.2 Nausea with vomiting, unspecified; R73.09 Other abnormal glucose; G89.18 Other acute postprocedural pain; I10 Essential (primary) hypertension; E78.2 Mixed hyperlipidemia; E55.9 Vitamin D deficiency, unspecified; Z95.1 Presence of aortocoronary bypass graft; E66.9 Obesity, unspecified; Z68.32 Body mass index [BMI] 32.0-32.9, adult; Z79.82 Long term (current) use of aspirin
CPT/HCPCS: 27447; 64447; 36415; 73560; 80048; 80307; 82040; 82565; 82947; 83036; 85025; 85027; 86850; 86900; 86901; 93005; 97110; 97116; 97161; 97165; 97530; 97535; A9270; C1713; C1776; G0378; J0171; J0690; J1100; J1170; J1741; J1885; J2270; J2405; J2704; J2795; J3010; J3370; J7030; J7120

== ENCOUNTER 2024-05-28 20:43 | Observation (INO) | payer OTHER, SELFPAY ==
--- NOTE | ~2024-05-28 | US_ITS ---
EXAMINATION: US venous doppler [facility] DATE: 05/29/2024 13:24 INDICATION: Left lower limb edema. TECHNIQUE: Grayscale ultrasound images without and with compression and Doppler ultrasound images of the left lower extremity veins were obtained. COMPARISON: None. FINDINGS: The visualized portions of left common femoral vein, profunda (deep) femoral vein, femoral vein, popl iteal vein, peroneal veins, posterior tibial veins, and greater saphenous vein outflow are patent. IMPRESSION: 1. No deep venous thrombosis. Reviewed, dictated and finalized at location A.
--- NOTE | ~2024-05-28 | CT_ITS ---
EXAMINATION: CTA chest PE protocol DATE: 05/29/2024 18:55 INDICATION: Rule out PE TECHNIQUE: Computed tomography angiography (CTA) of the chest was performed with 100 mL Omnipaque-350 intravenous contrast timed to evaluate the pulmonary arteries. Coronal maximum intensity projection 3D-reconstructions were created by the technologist. The dose-length product (DLP) was 361.54 mGy-cm. Automated exposure control and iterative reconstruction technique were employed. COMPARISON: None. FINDINGS: Lung parenchyma and airways: Calcified right lower lobe granulomas. Bilateral dependent scar/atelecta sis. Pleura: Unremarkable. Thoracic inlet, axillae and chest wall: Unremarkable. Thoracic aorta: No significant dilation. No dissection. Mediastinum: Calcified right hilar node. Heart and pericardium: Mitral calcification. Coronary artery calcifications: Absent. Upper abdomen: No significant finding. Bones: No acute osseous finding. Pulmonary arteries: Study quality: Adequate. No pulmonary emboli detected. IMPRESSION: No CT evidence of acute pulmonary embolus. No acute process detected in the chest. Reviewed, dictated and finalized at location K.
[2024-05-28 20:44] VITALS: BP 141/65; PULSE 86; RESP 14; TEMP 36.6; O2SAT 96
[2024-05-28 23:36] VITALS: BP 176/62; PULSE 73; TEMP 36.4; O2SAT 99
[2024-05-29] VITALS (13 sets, daily range): BP systolic 129–173; BP diastolic 57–75; PULSE 65–85; RESP 10–20; TEMP 36.1–37.2; O2SAT 96–99; BMI 31.6
--- NOTE | 2024-05-29 01:26 | ED.SKABFB ---
HPI - Skin/Abscess/Foreign Bdy General Chief complaint: Skin/Abscess/Foreign Body Stated complaint: reddness, swelling to L foot Time Seen by Provider: 05/29/24 01:13 Source: patient Mode of arrival: ambulatory Limitations: no limitations History of Present Illness HPI narrative: This is a 78 year old female that presents to the ER for left lower extremity swelling and redness. Ongoing since this morning. She has taken 4 doses of Cephalexin with continued worsening. She recently had a knee replacement on this side which concerned her and prompted her to be seen. Denies fever. Related Data Home Medications Medication Instructions Recorded Confirmed aspirin 81 mg tablet,delayed 81 mg PO DAILY 11/07/20 05/11/24 release (Adult Aspirin Regimen) cholecalciferol (vitamin D3) 50 2,000 unit PO DAILY 06/30/23 05/11/24 mcg (2,000 unit) tablet biotin 10,000 mcg/mL (10 mg/mL) 10,000 mcg PO DAILY 04/18/24 05/11/24 oral liquid fluticasone propionate 50 1 spray intranasal Q12H PRN Sinus 04/18/24 05/11/24 mcg/actuation nasal Symptoms spray,suspension (Flonase Allergy Relief) ibuprofen 200 mg tablet (Advil) 400 mg PO Q6H PRN Pain 04/18/24 05/11/24 mfhpdohr-pucjfr-bowqh extract 5 2 cap PO DAILY 04/18/24 05/11/24 mg-6 mg-150 mg capsule (Fruit and Vegetable Daily) turmeric root extract 150 1 tablet PO DAILY 04/18/24 05/11/24 mg-bella root extract 25 mg chewable tablet willow bark-red clover-borage 50 1 cap PO DAILY 04/18/24 05/11/24 mg-25 mg-250 mg capsule Allergies Allergy/AdvReac Type Severity Reaction Status Date / Time Inhaled Anesthetics (Halogen AdvReac Severe Vomiting Verified 05/11/24 09:48 Based) Review of Systems Review of Systems: CONSTITUTIONAL: Denies fever SKIN: Reports redness and swelling All systems reviewed & are unremarkable except as noted in HPI and below PMFSH Past Medical History Medical History Abnormal mammogram of right breast (11/29/23) mild asymmetry of the right breast on mammogram 11/29/2023 with need for additional views and ultrasound. Normal mammogram 12/29/2023. Actinic keratosis (~12/22/21) nose and left forearm Acute non-recurrent maxillary sinusitis At low risk for fall BMI 30.0-30.9,adult BMI 31.0-31.9,adult BMI 32.0-32.9,adult Breast adenoma Breast cancer screening by mammogram Breast pain, left (~03/2022) Chronic pain of left knee (~12/2023) left knee arthroplasty 04/26/2024. severe tricompartmental osteoarthritis on x-ray in the ER 01/17/2024. Chronic serous otitis media of both ears COVID-19 vaccine series completed Dermatitis (06/12/22) left anterior chest Dysphagia Elevated hemoglobin A1c hemoglobin A1c 6.4 with normal glucose at 89 on 01/25/2024. glucose 84 with hemoglobin A1c 6.1 on 04/18/2024. Fibrocystic breast normal mammogram 06/25/2022 with recheck in 1 year. Headache Hypertension Left otitis media Mixed hyperlipidemia Total cholesterol 172, triglycerides 197, HDL 56 and LDL 87 on 05/13/2021. total cholesterol 184, triglycerides 202, HDL 58, LDL 92 on 06/21/2023. Cholesterol 165, triglycerides 190, HDL 54, LDL 79 on 01/25/2024. Non-healing skin lesion (~12/2023) left maxillary face 0.4 cm with shave biopsy 04/19/2024 Osteoarthritis of left knee Otalgia of left ear Otitis media Seasonal allergic rhinitis Vitamin D deficiency (~06/21/23) Level low at 22.9 on 06/21/2023. Surgical History Surgical History H/O coronary artery bypass surgery 04/15 Family History Family History (Updated 05/11/24 @ 09:51 by DEBBIE Blue) Mother Depression Patient's mother is Father Patient's father is Family history of alcoholism Family history of heart disease in male family member before age 55 Hypertension Sibling Family history of lung cancer Patient's brother i
[2024-05-29 01:30] LABS: Basophils Percent Auto 0.4 % (0.2-1.2); Eosinophils Absolute Auto 0.6 K/mm3 (0-0.3); Eosinophils Percent Auto 5.2 % (0-4.4); Hematocrit 34.7 % (37.0-47.0); Immature Granulocyte Absolute 0.03 K/mm3 (0.00-0.031); Immature Granulocyte Percent A 0.3 % (0-0.5); Lymphocytes Absolute Auto 3.12 K/mm3 (0.9-3.2); Lymphocytes Percent Auto 29.5 % (18.3-44.2); Mean Corpuscular HGB Conc 31.7 g/dl (32-36); Mean Corpuscular Hemoglobin 30.3 pg (26-34); Mean Corpuscular Volume 95.6 fl (80-100); Mean Platelet Volume 10.6 fl (7.4-10.4); Monocytes Absolute Auto 0.9 K/mm3 (0.1-0.6); Monocytes Percent Auto 8.9 % (2.6-8.5); Neutrophils Absolute Auto 5.9 K/mm3 (1.3-6.7); Neutrophils Percent Auto 55.7 % (45.5-73.1); Platelet Count Result 270 k/mm3 (150-375); Red Blood Count 3.63 M/mm3 (4.2-5.4); Red Cell Distribution Width 13.2 % (11.5-14.5); White Blood Count 10.6 K/mm3 (4.5-10.0)
--- NOTE | 2024-05-29 01:34 | PC.NURSE ---
sarbjit vicente to send wound culture that she collected.
[2024-05-29 01:44] LABS: INR 0.9; Prothrombin Time 12.8 Seconds (11.1-14.7)
[2024-05-29 01:45] LABS: Partial Thromboplastin Time 26.2 Seconds (22.3-36.8)
[2024-05-29 02:08] LABS: Anion Gap 11 mmol/L (4-12); Blood Urea Nitrogen 19 mg/dL (7-17); Calcium 9.5 mg/dL (8.4-10.2); Carbon Dioxide 23 mmol/L (22-30); Chloride 104 mmol/L (98-107); Estimated CRCL calculation 68 ml/min; Estimated Glomerular Filt Rate > 60; Glucose 89 mg/dL (65-110); Sodium 138 mmol/L (137-145)
[2024-05-29 02:10] LABS: Erythrocyte Sedimentation Rate 58 mm/hr (0-20)
[2024-05-29 02:18] LABS: CRP 0.7 mg/dL (<1.0)
--- NOTE | 2024-05-29 02:19 | PC.NURSE ---
PT AMBULATORY WITH STEADY GAIT TO USE RESTROOM.
[2024-05-29] MEDS: VANCOMYCIN 1,500 MG/NS 500 ML 1,500 MG/500 ML BAG 250 MG IVPB ×2 (03:06→20:30)
[2024-05-29] MEDS: ACETAMINOPHEN 500 MG TABLET 1000 MG PO ×3 (03:09→22:37)
--- NOTE | 2024-05-29 04:12 | ADMGEN ---
This patient, Carly Kumar, was admitted to [facility] Room 322-02. Patient/family oriented to hospital policies and general routines including ID bracelet, bed and alarms, visiting hours, pain management, procedures, bathroom and other care routines, personal items, smoking policy, room service/diet, and visiting hours. Information on how to activate the Rapid Response Team has been discussed. Patient/Family are encouraged to report perceived risks to care and to ask questions if they do not understand what they are told or what they should do.
[2024-05-29] MEDS: IBUPROFEN 600 MG TABLET PO ×2 (08:11→18:09)
--- NOTE | 2024-05-29 14:53 | PM.IMHP ---
H&P: HPI History of Present Illness Date/Time: 05/29/24 14:53 Chief Complaint: Redness and swelling to left foot Narrative: This is a 78-year-old female with a significant past medical history of hypertension, hyperlipidemia, carotid endarterectomy, who presented to the hospital with left lower extremity swelling and redness. Patient provides the following history of presenting illness. She states that she noticed her leg was red and swollen and initially presented to an Urgent care who placed her on oral antibiotics for possible bug bite. She states the swelling and redness did not improve and she noted her left lateral leg to be weeping. She presented to the hospital for further work up as this redness and swelling was on the same side as her left total knee replacement which was done 1 month ago. Patient denies any fever, chills, nausea, vomiting, diarrhea, abdominal pain, chest pain, shortness a breath. She denies any pain or swelling at the knee. Patient endorses redness, swelling, warmth, weeping to the left lower extremity including foot. Workup in the hospital included venous Doppler study which was negative for DVT. Initial white blood cell count 10.6, hemoglobin 11.0, ESR 58, D-dimer 3.5, CRP 0.7, lactic acid 1.0. Blood and wound culture obtained and are pending. Patient was started on vancomycin. Review of Systems Review of Systems: All systems reviewed & are unremarkable except as noted in HPI and below Constitutional: Constitutional: Reports as per HPI and Reports no additional constitutional complaints Eyes: Eyes: Reports as per HPI and Reports no additional eye complaints ENT: Reports system reviewed and no additional complaints, except as documented and Reports as per HPI Cardiovascular: Cardiovascular: Reports as per HPI and Reports no additional cardiovascular complaints Respiratory: Respiratory: Reports as per HPI and Reports no additional respiratory complaints Gastrointestinal: Gastrointestinal: Reports as per HPI and Reports no additional gastrointestinal complaints Genitourinary: Genitourinary: Reports no additional female genitourinary complaints and Reports as per HPI Musculoskeletal: Musculoskeletal: Reports no additional musculoskeletal complaints and Reports as per HPI Integumentary/Breasts: Skin/Breast: Reports system reviewed and no additional complaints, except as docu and Reports as per HPI Neurologic: Reports system reviewed and no additional complaints, except as documented and Reports as per HPI Psychiatric: Psychiatric: Reports no additional psychiatric complaints and Reports as per HPI PMFSH Past Medical History Medical History (Updated 05/29/24 @ 17:27 by Martha Metzger, [place]) Abnormal mammogram of right breast (11/29/23) mild asymmetry of the right breast on mammogram 11/29/2023 with need for additional views and ultrasound. Normal mammogram 12/29/2023. Actinic keratosis (~12/22/21) nose and left forearm Acute non-recurrent maxillary sinusitis At low risk for fall BMI 30.0-30.9,adult BMI 31.0-31.9,adult BMI 32.0-32.9,adult Breast adenoma Breast cancer screening by mammogram Breast pain, left (~03/2022) Chronic pain of left knee (~12/2023) left knee arthroplasty 04/26/2024. severe tricompartmental osteoarthritis on x-ray in the ER 01/17/2024. Chronic serous otitis media of both ears COVID-19 vaccine series completed Dermatitis (06/12/22) left anterior chest Dysphagia Elevated hemoglobin A1c hemoglobin A1c 6.4 with normal glucose at 89 on 01/25/2024. glucose 84 with hemoglobin A1c 6.1 on 04/18/2024. FH: carotid endarterectomy Fibrocystic breast normal mammogram 06/25/2022 with recheck in 1 year. Headache Hypertension Left otitis media Mixed hyperlipidemia Total cholesterol 172, triglycerides 197, HDL 56 and LDL 87 on 05/13/2021. total cholesterol 184, triglycerides 202, HDL 58, LDL 92 on 06/21/2023. Cholesterol 165, triglycerides 190, HDL 54, LDL 79 on 01/25/2024. Non-healing
[2024-05-29] MEDS: ASPIRIN 81 MG ENTERIC TABLET PO (15:33)
[2024-05-29] MEDS: ROSUVASTATIN 10 MG TABLET PO (15:33)
[2024-05-29] MEDS: lisinopriL 20 MG TABLET PO (15:33)
[2024-05-29] MEDS: CHOLECALCIFEROL 1,000 UNITS TABLET 2000 UNITS PO (15:33)
[2024-05-29] MEDS: ceFAZolin 1 GM/NS 50 ML 1 GM/50 ML BAG IVPB ×2 (15:35→22:37)
[2024-05-30] MEDS: ceFAZolin 1 GM/NS 50 ML 1 GM/50 ML BAG IVPB (05:00)
[2024-05-30] MEDS: IBUPROFEN 600 MG TABLET PO (05:00)
[2024-05-30 05:49] VITALS: BP 149/66; PULSE 64; RESP 22; TEMP 36.3; O2SAT 96
[2024-05-30 06:05] LABS: Estimated CRCL calculation 69 ml/min; Estimated Glomerular Filt Rate > 60
[2024-05-30 07:41] LABS: Basophils Percent Auto 0.4 % (0.2-1.2); Eosinophils Absolute Auto 0.5 K/mm3 (0-0.3); Eosinophils Percent Auto 7.5 % (0-4.4); Hematocrit 34.6 % (37.0-47.0); Hemoglobin 10.5 g/dL (12.0-15.0); Immature Granulocyte Absolute 0.02 K/mm3 (0.00-0.031); Immature Granulocyte Percent A 0.3 % (0-0.5); Lymphocytes Absolute Auto 2.29 K/mm3 (0.9-3.2); Lymphocytes Percent Auto 33.1 % (18.3-44.2); Mean Corpuscular HGB Conc 30.3 g/dl (32-36); Mean Corpuscular Hemoglobin 29.6 pg (26-34); Mean Corpuscular Volume 97.5 fl (80-100); Mean Platelet Volume 10.5 fl (7.4-10.4); Monocytes Absolute Auto 0.7 K/mm3 (0.1-0.6); Monocytes Percent Auto 9.4 % (2.6-8.5); Neutrophils Absolute Auto 3.4 K/mm3 (1.3-6.7); Neutrophils Percent Auto 49.3 % (45.5-73.1); Platelet Count Result 245 k/mm3 (150-375); Red Blood Count 3.55 M/mm3 (4.2-5.4); Red Cell Distribution Width 13.3 % (11.5-14.5); White Blood Count 6.9 K/mm3 (4.5-10.0)
[2024-05-30 07:48] LABS: Alanine Aminotransferase 11 U/L (6-35); Alkaline Phosphatase 95 U/L (38-126); Anion Gap 10 mmol/L (4-12); Aspartate Amino Transferase 18 U/L (14-36); Bilirubin,Total 0.3 mg/dL (0.2-1.3); Blood Urea Nitrogen 12 mg/dL (7-17); Calcium 9.3 mg/dL (8.4-10.2); Carbon Dioxide 23 mmol/L (22-30); Chloride 107 mmol/L (98-107); Estimated CRCL calculation 69 ml/min; Estimated Glomerular Filt Rate > 60; Glucose 99 mg/dL (65-110); Potassium 4.5 mmol/L (3.4-5.0); Sodium 140 mmol/L (137-145)
[2024-05-30] MEDS: CHOLECALCIFEROL 1,000 UNITS TABLET 2000 UNITS PO (08:41)
[2024-05-30] MEDS: ENOXAPARIN 40 MG/0.4 ML SYRINGE SUB-Q (08:41)
[2024-05-30] MEDS: ROSUVASTATIN 10 MG TABLET PO (08:42)
[2024-05-30] MEDS: lisinopriL 20 MG TABLET PO (08:42)
[2024-05-30] MEDS: ASPIRIN 81 MG ENTERIC TABLET PO (08:42)
--- NOTE | 2024-05-30 09:19 | PM.DS ---
DS: Admitting Diagnosis Discharge Date 05/30/24 Admitting Diagnosis Cellulitis Elevated D-dimer Hypertension Mixed hyperlipidemia Anemia DS: Discharge Diagnosis Discharge Diagnosis (1) Cellulitis: Qualifiers: Laterality: left Site of cellulitis: extremity Site of cellulitis of extremity: lower extremity Qualified Code(s): L03.116 - Cellulitis of left lower limb Code(s): L03.90 - Cellulitis, unspecified Status: Acute (2) D-dimer, elevated: Code(s): R79.89 - Other specified abnormal findings of blood chemistry Status: Acute (3) Hypertension: Qualifiers: Hypertension type: primary hypertension Qualified Code(s): I10 - Essential (primary) hypertension Code(s): I10 - Essential (primary) hypertension Status: Chronic (4) Mixed hyperlipidemia: Code(s): E78.2 - Mixed hyperlipidemia Status: Chronic (5) Anemia: Code(s): D64.9 - Anemia, unspecified Status: Chronic DS: Summary Hospital Course Reason for hospitalization: Cellulitis Elevated D-dimer Hypertension Mixed hyperlipidemia Anemia Hospital Course: This is a 78-year-old female with a significant past medical history of hypertension, hyperlipidemia, carotid endarterectomy, who presented to the hospital with left lower extremity swelling and redness. Patient provides the following history of presenting illness. She states that she noticed her leg was red and swollen and initially presented to an Urgent care who placed her on oral antibiotics for possible bug bite. She states the swelling and redness did not improve and she noted her left lateral leg to be weeping. She presented to the hospital for further work up as this redness and swelling was on the same side as her left total knee replacement which was done 1 month ago. Patient denies any fever, chills, nausea, vomiting, diarrhea, abdominal pain, chest pain, shortness a breath. She denies any pain or swelling at the knee. Patient endorses redness, swelling, warmth, weeping to the left lower extremity including foot. Workup in the hospital included venous Doppler study which was negative for DVT. Initial white blood cell count 10.6, hemoglobin 11.0, ESR 58, D-dimer 3.5, CRP 0.7, lactic acid 1.0. Blood and wound culture obtained and are pending. Patient was started on vancomycin and Ancef. today patient erythema is better, along with the swelling. She was transitioned to clindamycin and doxycycline and will need to finish out the full course then follow up with her primary care physician in 1 week. Is stable for discharge at this time. Final diagnosis: Cellulitis Status at Discharge Cognitive/behavioral status at discharge: Alert oriented x3 Functional status at discharge: independent ambulation Overall status at discharge: patient is progressing back to baseline Time Spent with Patient Time attestation: Total time spent providing and/or coordinating discharge services: Time spent: Greater than 30 minutes Exam Narrative: General: In no acute distress Cardiac: Normal S1 and S2. RRR, No murmur, gallops or friction rubs, peripheral pulses intact. Respiratory: Lungs clear to auscultation, no adventitious lung sounds, currently on room air Extremities: Edema to left foot Skin: Erythema and swelling appears much improved today. Neuro: Alert and oriented x4 DS: Data Data Completed and Pending Completed studies during hospitalization: Venous Doppler study Chest CTA Pending studies at discharge: blood cultures are pending Labs on day of discharge: Labs from last 24 hours 05/30/24 05/30/24 05:44 05:40 WBC 6.9 RBC 3.55 L Hgb 10.5 L Hct 34.6 L MCV 97.5 MCH 29.6 MCHC 30.3 L RDW 13.3 Plt Count 245 MPV 10.5 H Immature Gran % (Auto) 0.3 Neut % (Auto) 49.3 Lymph % (Auto) 33.1 [place] % (Auto) 9.4 H Eos % (Auto) 7.5 H Baso % (Auto) 0.4 Lymph # (Auto) 2.29 [place] # (Auto) 0.7 H
== END 2024-05-30 10:45 | disposition home or self-care (01) ==
LOC: ANHED 05-29 03:12 → ANH3MEDSUR 05-29 03:49
PROVIDERS: Admitting Provider Internal Medicine; Emergency Provider Physician Assistant; PCP Family Medicine; Visit Provider Nurse Practitioner Acute Care
DX: L03.116 Cellulitis of left lower limb (principal); R79.1 Abnormal coagulation profile; I10 Essential (primary) hypertension; E78.2 Mixed hyperlipidemia; D64.9 Anemia, unspecified; E55.9 Vitamin D deficiency, unspecified; Z95.1 Presence of aortocoronary bypass graft; Z79.82 Long term (current) use of aspirin
CPT/HCPCS: 36415; 71275; 80048; 80053; 82565; 83605; 85025; 85380; 85610; 85652; 85730; 86140; 87040; 87070; 87205; 93971; 96365; 96366; 96367; 96372; 96376; 99285; A9270; G0378; J0690; J1650; J3370; Q9967

== ENCOUNTER 2024-07-19 09:00 | Outpatient (RCR) | payer OTHER, SELFPAY ==
--- NOTE | 2024-05-02 14:33 | OPREHPOC ---
Outpatient Therapy Plan of Care This is a Multidisciplinary Plan of Care that may contain components documented by all disciplines (PT, OT, and ST.) PT Problem 1 PT Problem #1 Knowledge Deficit PT Goal 1 Goal 1* indep with HEP 2* correct use of assistive device Target Visit 10 PT Problem 2 PT Problem #2 Pain PT Goal 1 Goal 1* pain rating of 3/10 at worst 2* pt report with sleeping, no awakening due to knee pain Target Visit 10 PT Problem 3 PT Problem #3 Impaired Range of Motion PT Goal 1 Goal improve L knee ROM for improved gait pattern, stair ability and sit/stand transfer active in sitting 1* extension 0' 2* flexion 110' decrease edema for improved ROM: circumferential measurements in long sittin* superior to patella 48 cm 4* mid patella 47 cm 5* inferior to patella 39 cm Target Visit 10 PT Problem 4 PT Problem #4 Impaired Functional Mobility PT Goal 1 Goal 1* 5 reps sit/stand time of 16 seconds 2* sit/stand without use of UE's 3* 2 minute walking test distance of 325' 4* up /down 4 steps with one hand railing and alternate step pattern 5* use of cane with walking Target Visit 10
--- NOTE | 2024-05-02 14:33 | PTOPEVAL1 ---
Assessment and note entered by Jannet Langley, PT Evaluation Information Assessment Status Evaluation Diagnosis s/p L TKR ICD-10 Condition Codes (PT) Difficulty Walking R26.2,R26.9,Weakness R53.1,Z47. 1 Onset 04-26-24 Subjective Information feels like she is doing OK at home; using the wheeled walker; is sleeping in the recliner, to keep leg elevated and comfortable; have been doing sponge bath, this AM was first time in the shower - used the grab bar and stood OK, but getting out was hard; ( she has a tub seat, but not put in the bathtub yet-- instructed and educated on use of it, sit and and to swing her legs out of tub) been doing the exercises at home from hospital 15- 20 of each; Reported Pain Level Pain Score 3: Self Report Additional Pain Score Comments pain range in the past few days: 2-5/10; pain awakens from sleeping 1x/night, take hydrocodone before bedtime; sleeping in recliner chair decrease pain: sit, rest, prescription meds every 4-5 hours; ice 2x/day; educated on use of ice for 10 min, every hour at the most Assessment PT Clinical Summary Ashley is s/p L TKR. Prior to surgery, she was active and did not use an assistive device. Her is assisting with home tasks. With the evaluation: L knee ROM is (-10') to 85', with increased edema of 3 cm with comparison to R knee, with all 3 circumferential measurements; 2 minute walking test distance of 225'; walking pattern with decreased L hip and knee flexion. Skilled PT services are indicated for modalities to decrease pain and edema, therapeutic exercises to increase knee ROM and strength with education for progression of HEP and to lesser assistive device. Plan of Care Interventions Hot Pack/Cold Pack,Intermittent Compression,Manual Therapy,Neuro Re-education,Patient/Caregiver Education,Therapeutic Activities,Therapeutic Exercise,Other Other Interventions taping PT Services Indicated Yes Treatment Frequency and
--- NOTE | 2024-06-14 12:04 | OPREHPOC ---
Outpatient Therapy Plan of Care This is a Multidisciplinary Plan of Care that may contain components documented by all disciplines (PT, OT, and ST.) PT Problem 1 PT Problem #1 Knowledge Deficit PT Goal 1 Goal / Goal Update 1* indep with HEP 2* correct use of assistive device Target Visit 10 Progress Met PT Goal 2 Goal / Goal Update 06-14-24 progress goals met continue to progress HEP and education Target Visit 16 PT Problem 2 PT Problem #2 Pain PT Goal 1 Goal / Goal Update 1* pain rating of 3/10 at worst 2* pt report with sleeping, no awakening due to knee pain Target Visit 10 Progress Not Met PT Goal 2 Goal / Goal Update 06-14-24 progress goals not met continue towards goals Target Visit 16 PT Problem 3 PT Problem #3 Impaired Range of Motion PT Goal 1 Goal / Goal Update improve L knee ROM for improved gait pattern, stair ability and sit/stand transfer active in sitting 1* extension 0' 2* flexion 110' decrease edema for improved ROM: circumferential measurements in long sittin* superior to patella 48 cm 4* mid patella 47 cm 5* inferior to patella 39 cm Target Visit 10 Progress Partially Met PT Goal 2 Goal / Goal Update 06-14-24 progress goals met for edema 3,4,5 continue towards goals 1 & 2 Target Visit 16 PT Problem 4 PT Problem #4 Impaired Functional Mobil PT Goal 1 Goal / Goal Update 1* 5 reps sit/stand time of 16 seconds 2* sit/stand without use of UE's 3* 2 minute walking test distance of 325' 4* up /down 4 steps with one hand railing and alternate step pattern 5* use of cane with walking Target Visit 10
--- NOTE | 2024-06-14 12:04 | PTOPPROG ---
Assessment and note entered by Jannet Langley, PT Progress Report Assessment Status Progress Diagnosis s/p L TKR ICD-10 Condition Codes (PT) Difficulty Walking R26.2,R26.9,Weakness R53.1,Z47. 1 Onset 04-26-24 Subjective Information did alot yesterday and had more pain last night with trying to sleep--out to eat for lunch, shopping and up all afternoon; feel like need to bend knee more; do not use the cane in the house and when go out, tend to carry the cane and not use it; feel like may need it for uneven surfaces feel like having the cellulitis slowed her recover down; wants to continue therapy. PAIN: range in the past week 1-5/10 with sleeping awaken 1x/night due to pain-after sleeping about 6 hours, then cannot fall back asleep for 1- 2 hours; take advil before bed time; educated and discussed sleep positions--sleeps on her sides or back; instruct on use of pillow between her knees for positioning; has not been using ice over knee--reinforced PRN use with swelling and increased activity Assessment PT Clinical Summary Ashley has received 10 PT sessions. Compared to the initial evaluation: pain rating from 2-5/10 to 1-5/10; no longer taking prescription pain meds, using advil only; sleep is same tolerance, disrupted about 1x night due to knee pain; 5 reps sit stand time from 19 sec with both UE to 16 seconds without UE use; 2 minute walking test distance from 225' to 375'; decreased edema with 3/3 of the circumferential measurements- 2.5 to 4 letty reduction- but continues to have edema over knee; gait from wheeled walker to cane or no device; increase strength and ROM of L knee; education received for HEP, gait training. ROM of L knee: active sitting (-8') to 95; passive stretch (-3') to 100. The goals were partially achieved. Continue treatment. Plan of Care Interventions Electrical Stimulation,Gait Training,Hot Pack/Cold Pack,Intermittent Compression,Manual Therapy, Neuro Re-education,Patient/Caregiver Educati, Therapeutic Activities,Therapeutic
--- NOTE | 2024-07-19 10:00 | PTOPDC ---
Assessment and note entered by Jannet Langley, PT Discharge Report Assessment Status Discharge Diagnosis s/p L TKR ICD-10 Condition Codes (PT) Difficulty Walking R26.2,R26.9,Weakness R53.1,Z47. 1 Onset 04-26-24 Subjective Information still having problems with pain at night- wakes her up from sleeping 1x/night and bending the knee; have some swelling in knee still; does not use the cane; have been doing the exercises; back to her usual activities, doing everything; Reported Pain Level Pain Score Self Report Additional Pain Score Comments pain range in the past week 0-4/10; increase pain: end of day, up on feet/walking/ activity about 1 hour; sitting 1 & 1/2 hours; decrease pain: change positions, sit/rest, ice, elevate leg in recliner; advil PRN- most at night with sleeping- awaken 1x/night due to pain Assessment PT Clinical Summary Ashley has received a total of 15 PT sessions. Compared to the last progress report: pain from 1-5/10 to 0-4/10; sleeping continues to awaken 1x/ night due to knee pain; increase knee extension and flexion ranges of motion; increase strength of L LE; decreased edema with circumferential measurements with 2 of the 3 measurements; gait pattern is normal and she has returned to all of her normal activity level. Education completed for HEP and activity progression. L knee active ROM (-3') to 100' with passive stretch to 105'; The goals were partially met. Discharge PT services, she is to continue with her HEP and progression of activity as tolerated. Plan of Care PT Services Indicated No
== END 2024-07-19 11:10 | disposition home or self-care (01) ==
LOC: ANHPT 09:00
PROVIDERS: PCP Family Medicine; Visit Provider Orthopaedic Surgery
DX: Z47.1 Aftercare following joint replacement surgery (principal); Z96.652 Presence of left artificial knee joint
CPT/HCPCS: 97016; 97110; 97116; 97140; 97161; 97530

== ENCOUNTER 2024-11-30 10:15 | Outpatient (CLI) | payer OTHER, SELFPAY ==
--- NOTE | ~2024-11-30 | MM_ITS ---
EXAMINATION: MM screening adriana BI w kim HISTORY: Screening TECHNIQUE: Craniocaudal and mediolateral oblique 3-D tomosynthesis images were obtained and synthetic 2-D images were generated. CAD analysis was submitted and interpreted. COMPARISON: Comparison to multiple prior studies sequentially, with oldest reviewed study dated 07/25. BREAST PARENCHYMAL COMPOSITION: Not dense: There are scattered areas of fibroglandular density. FINDINGS: There is no evidence of suspicious mass, calcification, or architectural distortion to sugg est malignancy in either breast. There has been no suspicious interval change. IMPRESSION: 1. No mammographic evidence of malignancy. 2. Recommend routine screening mammography in one year. BI-RADS Category 1: Negative Reviewed, dictated and finalized at location B. [employer]
== END 2024-11-30 10:16 | disposition home or self-care (01) ==
LOC: MICIMG 10:16
PROVIDERS: PCP Family Medicine; Visit Provider Family Medicine
DX: Z12.31 Encounter for screening mammogram for malignant neoplasm of breast (principal)
CPT/HCPCS: 77063; 77067

== ENCOUNTER 2024-12-19 00:16 | Day surgery (SDC) | payer OTHER, SELFPAY ==
[2024-12-01 14:13] VITALS: BMI 30.9
--- OUTSIDE RECORDS SUMMARY | 2024-12-19 00:19 | XMS_ITS | Referral Summary ---
Author Organization [facility] at the [facility] Office Center Address [address] [place] [address] Care Team Providers Care Sat Math Tutor Name Role Phone Ace Fan MD Primary Care Provider [phone] Allergies No known active allergies Medications amLODIPine (NORVASC) 5 mg tablet Take 5 mg by mouth daily Active lisinopriL (PRINIVIL,ZESTR IL) 40 mg tablet Take 0.5 tablets (20 mg total) by mouth daily Active cholecalciferol (VITAMIN D-3) 1,000 unit capsule Take 1,000 Units by mouth daily Active rosuvastatin (CRESTOR) 10 mg tablet Take 1 tablet (10 mg total) by mouth daily Active fluorouraciL (EFUDEX) 5 % cream APPLY A SUFFICIENT AMOUNT TOPICALLY TO COVER ALL LESIONS TWICE DAILY FOR 2 WEEKS ON THEN 2 WEEKS OFF UNTIL CLEAR 2 Active aspirin 81 mg enteric coated tablet Take 1 tablet (81 mg total) by mouth daily Active apple cider vinegar 500 mg tablet Take 1 tablet by mouth Active fluticasone propionate (FLONASE) 50 mcg/actuation nasal spray SHAKE LIQUID AND USE 1 SPRAY IN EACH NOSTRIL EVERY 12 HOURS 2 Active cetirizine (ZyrTEC) 10 mg tablet Take 1 tablet (10 mg total) by mouth daily 3 Active Active Problems Problem Noted Date Diagnosed Date Bilateral carotid artery stenosis 03/30/2022 Assessment & Plan (12/31/2023 10:52 AM BOX INSPECTOR): Bilateral internal carotid arteries remain patent. Velocities are normal. She remains asymptomatic. Plan: Continue aspirin and statin therapy and follow-up in 1 year for routine surveillance with a carotid duplex Assessment & Plan (12/19/2022 9:58 AM BOX INSPECTOR): Impression: Patient is status post left carotid endarterectomy in April 2022. She remains asymptomatic. Carotid duplex reveals patent left internal carotid artery and mild right internal carotid artery stenosis with less than 49% diameter. Plan: Continue ongoing risk factor modifications. Patient to follow-up in 1 year for re-evaluation with repeat carotid duplex. Assessment & Plan (04/20/2022 11:05 AM CDT): Patient is status post left carotid endarterectomy and doing well at this time. She has when to follow up in 1 month with a carotid duplex. Her blood pressure was low upon arrival here as it was 99/52. I told her not to take her blood pressure medications tomorrow and continue to monitor her blood pressure. She will do that as well as call her PCP. Essential hypertension 08/27/2020 Assessment & Plan (12/19/2022 9:58 AM BOX INSPECTOR): Impression: Chronic hypertension. Plan: Continue lisinopril 40 mg and amlodipine 5 mg. Assessment & Plan (02/24/2022 8:55 AM CDT): Followed by her PCP and chronic and stable. I recommend she continue her amlodipine and lisinopril for blood pressure control. Assessment & Plan (09/01/2021 11:17 AM BOX INSPECTOR): Followed by her PCP and controlled on her current medications. Assessment & Plan (05/19/2021 9:46 AM CDT): Followed by her PCP and her blood pressure is well controlled on her current medications. Assessment & Plan (05/07/2021 4:27 PM CDT): Followed by her PCP and controlled on her current medications. Assessment & Plan (08/27/2020 11:53 AM BOX INSPECTOR): Followed by her PCP and on medications at this time. Dyslipidemia 08/27/2020 Assessment & Plan (12/19/2022 9:59 AM BOX INSPECTOR): Impression: Chronic hyperlipidemia Plan: Continue Crestor 10 mg Assessment & Plan (02/24/2022 8:55 AM CDT): Followed by her PCP chronic and stable. I recommend she continue her Crestor for lipid lowering medication. Assessment & Plan (09/01/2021 11:17 AM BOX INSPECTOR): Followed by her PCP and currently on a statin. Assessment & Plan (05/19/2021 9:46 AM CDT): Followed by her PCP and currently on a statin. Assessment & Plan (05/07/2021 4:27 PM CDT): Followed by her PCP and controlled on a statin. Assessment & Plan (08/27/2020 11:53 AM BOX INSPECTOR): Followed by her PCP and on a statin at this time. Adenoma of right nipple 06/28/2019 Bloody discharge from right nipple 04/24/2019 Resolved Problems Problem Noted Date Diagnosed Date Resolved Date Bilateral carotid artery occlusion 03/05/2022 12/19/2022 Overview (03/05/2022): Added automatically from request for surgery [id number] Stenosis of left carotid artery 08/27/2020 12/19/2022 Assessment & Plan (02/24/2022 8:55 AM CDT): I have discussed with patient several times over about her left internal carotid artery stenosis and we discussed again today that since the velocities have been steadily increasing and shows a significant stenosis on CT scan we should proceed with a left carotid endarterectomy. She understands and says that she knows that it was likely going to happen soon as we have discussed that many times and the velocities keep increasing of her left carotid artery. I discussed with her the risks, benefits and alternatives of the procedure which include but are not limited to: Bleeding, infection, damage to the vein, artery or nerve, damage to multiple different nerves in the area which could result in difficulty swallowing, risk of CT or stroke and any risk with anesthesia. Patient understands and is willing to proceed. We will have her see a product support rep for preoperative risk stratification and will proceed with a left carotid endarterectomy. Patient also takes an 81 mg aspirin which I told her to continue. Assessment & Plan (09/01/2021 11:17 AM BOX INSPECTOR): Patient has left carotid artery stenosis with velocities that have slightly elevated since her previous study. Plan will be to have her follow up in 3 months with a repeat duplex. If the velocities go up any higher plan will be for a left carotid endarterectomy. She can call sooner if there are any questions or concerns. Assessment & Plan (05/19/2021 9:46 AM CDT): Patient has left carotid artery stenosis with velocities on her carotid duplex showing that she is nearly approaching 80% stenosis. He has no symptoms at this time. She is on an aspirin, statin and her blood pressure is well controlled. She says that she is going to start eating more high-fiber diets as well as exercising more. I will have her follow up in 3 months with a carotid duplex. I discussed with her that if she has any symptoms she needs to call sooner and if she approaches the 80% range or above that the plan will be for revascularization of her carotid. She says she understands and will follow up in 3 months. Assessment & Plan (05/07/2021 4:27 PM CDT): Patient has significant stenosis of the left carotid artery and plan will be for CT angiogram of the carotids. I will have her follow back up in 2 weeks and will discuss these findings. Patient very well may need a carotid revascularization procedure especially given that her velocities of the proximal internal carotid artery or 339/110. I discussed this with her and told her that we would discuss the CT findings on her follow-up appointment. She understands. Assessment & Plan (08/27/2020 11:53 AM BOX INSPECTOR): Patient has left carotid artery stenosis of about 75% without any symptoms at this time. She is currently taking a statin and has never been a smoker. I would recommend to her currently to start taking an aspirin 81 mg daily. She says that she will do that at this time. I told her that if she had any of the symptoms of stroke or TIA to go to the emergency room and call our office. Otherwise I will have her follow up in 6 months with a repeat carotid duplex. Immunizations Immunization Administration Dates Next Due Influenza, Quadrivalent, Spl it, Preservative Free, Intramuscular 08/12/2020 Influenza, Trivalent, Adjuva nted, Intramuscular 08/05/2018 Influenza, Trivalent, High D ose, Split, Preservative Free, Intramuscular 10/28/2019,09/19/2018,10/21/2015 Social History Tobacco Use Types Packs/Day Years Used Date Smoking Tobacco: Never Smokeless Tobacco: Never Tobacco Cessation:Counseling Given: Not Answered AUDIT-C Answer Date Recorded Q1: How often do you have a drink containing alc ohol? Monthly or less 03/11/2022 Average Number of Drinks Not on file 022 Q3: How often do you have si x or more drinks on one occasion? Never 03/11/2022 Comments No Sex and Gender Information Value Date Recorded Sex Assigned at Not on file Legal Sex Female 2:56 AM BOX INSPECTOR Gender Identity Not on file Sexual Orientation Not on file Last Filed Vital Signs Vital Sign Reading Time Taken Comments Blood Pressure 142/76 12/29/2023 9:02 AM BOX INSPECTOR Pulse 72 12/29/2023 9:02 AM BOX INSPECTOR Temperature 36.4 C (97.5 F) 03/31/2022 11:46 AM CDT Respiratory Rate 18 03/31/2022 11:46 AM CDT Oxygen Saturation 94% 03/31/2022 11:46 AM CDT Inhaled Oxygen Concentration - - Weight 81.6 kg (180 lb) 12/29/2023 9:02 AM BOX INSPECTOR Height 162.6 cm (5' 4 ) 12/29/2023 9:02 AM BOX INSPECTOR Body Mass Index 30.9 12/29/2023 9:02 AM BOX INSPECTOR Plan of Treatment Not on file Medical Devices Implanted Type Area Finance Manager Device Identifier Shelf Expiration Date Model / Serial / Lot [employer] Vascu-Guard 8x.8cm Peripheral Patch Vascular Bovine Pericardium [id number] - [id number] Implanted:Qty: 1 on 03/30/2022 by Skye Kerr MD at [facility] Left: Neck Xiong Blue Source [facility] 10/30/2026 [id number] / / [id number] Insurance [facility] Advance Directives For more information, please contact: [phone] * Full Code (Latest Code Status on File) Date Activated Date Inactivated Comments 03/30/2022 3:48 PM 03/31/2022 4:54 PM Care Teams Sat Math Tutor Relationship Specialty Start Date End Date Ace Fan MD [address] [address] [place] [address] PCP - General Family Medicine 02/23/22
--- OUTSIDE RECORDS SUMMARY | 2024-12-19 00:19 | XMS_ITS | Clinical Summary ---
Author Organization [facility] Address [address] [place] [address] Care Team Providers Care Medicine Man Name Role Phone Ghanshyam Kerr MD Primary Care Provider [phone] Allergies Active Allergy Reactions Criticality Noted Date Comments Staticin Muscle Pain High 05/23/2019 Medications lisinopril (PRINIVIL) 40 mg tablet Take 40 mg by mouth daily. Active amLODIPine (NORVASC) 5 mg tablet Take 5 mg by mouth daily. Active rosuvastatin (CRESTOR) 10 mg tablet Take 10 mg by mouth daily at bedtime. Active Active Problems Problem Noted Date Diagnosed Date Adenoma of right nipple 06/28/2019 Bloody discharge from right nipple 04/24/2019 Social History Tobacco Use Types Packs/Day Years Used Date Smoking Tobacco: Never Smokeless Tobacco: Never Alcohol Use Standard Drinks/Week Comments Not Currently 0 (1 standard drink = 0.6 oz pur e alcohol) Comments No Sex and Gender Information Value Date Recorded Sex Assigned at Not on file Legal Sex Female 12:29 PM CDT Gender Identity Not on file Sexual Orientation Not on file Last Filed Vital Signs Vital Sign Reading Time Taken Comments Blood Pressure 127/79 07/19/2019 1:38 PM CDT Pulse 75 07/19/2019 1:38 PM CDT Temperature 36.4 C (97.6 F) 07/19/2019 1:38 PM CDT Respiratory Rate - - Oxygen Saturation 97% 07/19/2019 1:38 PM CDT Inhaled Oxygen Concentration - - Weight 80.2 kg (176 lb 14.4 oz) 07/19/2019 1:38 PM CDT Height 162.6 cm (5' 4 ) 07/19/2019 1:38 PM CDT Body Mass Index 30.36 07/19/2019 1:38 PM CDT Plan of Treatment Health Maintenance Due Date Last Done Comments DTAP/TDAP/TD VACCINES (1 - Tdap) 1964 PNEUMOCOCCAL VACCINE 65+ YEARS (1 of 1 - PCV) 07/03/19 95 ZOSTER VACCINE (1 of 2) 1995 OSTEOPOROSIS SCREENING 2010 RSV VACCINE (60+ or ) (1 - 1-dose 75+ series) 2020 INFLUENZA VACCINE (#1) 2024 Insurance MCR Care Teams Medicine Man Relationship Specialty Start Date End Date Ghanshyam Kerr MD [address] [place] [address] PCP - General Internal Medicine 04/24/19
--- OUTSIDE RECORDS SUMMARY | 2024-12-19 00:19 | XMS_ITS | Clinical Summary ---
Author Organization [facility] at the [facility] Office Center Address [address] [place] [address] Care Team Providers Care Lace Roller Name Role Phone Ace Fan MD Primary Care Provider [phone] Allergies No known active allergies Medications amLODIPine [...] 03/30/2022 Assessment & Plan (12/31/2023 10:52 AM FLOWER MAKER): Bilateral internal carotid arteries remain patent. Velocities are normal. She remains asymptomatic. Plan: Continue aspirin and statin therapy and follow-up in 1 year for routine surveillance with a carotid duplex Assessment & Plan (12/19/2022 9:58 AM FLOWER MAKER): Impression: Patient is status post left carotid [...] 08/27/2020 Assessment & Plan (12/19/2022 9:58 AM FLOWER MAKER): Impression: Chronic hypertension. Plan: Continue lisinopril 40 mg and amlodipine 5 mg. Assessment & Plan (02/24/2022 8:55 AM CDT): Followed by her PCP and chronic and stable. I recommend she continue her amlodipine and lisinopril for blood pressure control. Assessment & Plan (09/01/2021 11:17 AM FLOWER MAKER): Followed by her PCP and controlled on her current medications. Assessment & Plan (05/19/2021 9:46 AM CDT): Followed by her PCP and her blood pressure is well controlled on her current medications. Assessment & Plan (05/07/2021 4:27 PM CDT): Followed by her PCP and controlled on her current medications. Assessment & Plan (08/27/2020 11:53 AM FLOWER MAKER): Followed by her PCP and on medications at this time. Dyslipidemia 08/27/2020 Assessment & Plan (12/19/2022 9:59 AM FLOWER MAKER): Impression: Chronic hyperlipidemia Plan: Continue Crestor 10 mg Assessment & Plan (02/24/2022 8:55 AM CDT): Followed by her PCP chronic and stable. I recommend she continue her Crestor for lipid lowering medication. Assessment & Plan (09/01/2021 11:17 AM FLOWER MAKER): Followed by her PCP and currently on a statin. Assessment & Plan (05/19/2021 9:46 AM CDT): Followed by her PCP and currently on a statin. Assessment & Plan (05/07/2021 4:27 PM CDT): Followed by her PCP and controlled on a statin. Assessment & Plan (08/27/2020 11:53 AM FLOWER MAKER): Followed by her PCP and on a statin at this time. Adenoma of right nipple 06/28/2019 Bloody discharge from right nipple 04/24/2019 Resolved Problems Problem Noted Date Diagnosed Date Resolved Date Bilateral carotid artery occlusion 03/05/2022 12/19/2022 Overview (03/05/2022): Added automatically from request for surgery [id number] Stenosis of left carotid artery 08/27/2020 12/19/2022 [...] could result in difficulty swallowing, risk of MA or stroke and any risk with anesthesia. Patient understands and is willing to proceed. We will have her see a surgeon chief for preoperative risk stratification and will proceed with a left carotid endarterectomy. Patient also takes an 81 mg aspirin which I told her to continue. Assessment & Plan (09/01/2021 11:17 AM FLOWER MAKER): Patient has left carotid artery stenosis with [...] understands. Assessment & Plan (08/27/2020 11:53 AM FLOWER MAKER): Patient has left carotid artery stenosis of [...] D ose, Split, Preservative Free, Intramuscular 10/28/2019,09/19/2018,10/21/2015 Surgical History Surgery Date Site/Laterality Comments LEG SURGERY Left hardware inserted then removed, at age 17 COLONOSCOPY Medical History Medical History Date Comments Hypertension Dyslipidemia Hyperlipidemia Obesity Carotid stenosis, asymptomatic, left Social History Tobacco Use Types Packs/Day Years [...] on file Legal Sex Female 2:56 AM FLOWER MAKER Gender Identity Not on file Sexual Orientation Not on file Obstetrics History Last Filed Vital Signs Vital Sign Reading Time Taken Comments Blood Pressure 142/76 12/29/2023 9:02 AM FLOWER MAKER Pulse 72 12/29/2023 9:02 AM FLOWER MAKER Temperature 36.4 C (97.5 F) 03/31/2022 11:46 AM CDT Respiratory Rate 18 03/31/2022 11:46 AM CDT Oxygen Saturation 94% 03/31/2022 11:46 AM CDT Inhaled Oxygen Concentration - - Weight 81.6 kg (180 lb) 12/29/2023 9:02 AM FLOWER MAKER Height 162.6 cm (5' 4 ) 12/29/2023 9:02 AM FLOWER MAKER Body Mass Index 30.9 12/29/2023 9:02 AM FLOWER MAKER Plan of Treatment Health Maintenance Due Date Last Done Comments Depression Screening 1945 Hepatitis C Screening 1945 Osteoporosis Screening-Bone Density Scan 1945 DTaP/Tdap/Td Vaccine (1 - Tdap) 1956 Hepatitis B Screening 1963 Pneumococcal vaccine 65+ (1 of 1 - PCV) 1995 Zoster Vaccine (1 of 2) 1995 Well Visit 65+ 2010 Fall Risk Assessment 03/31/2023 03/31/2022 Covid-19 Vaccine (3 - 2023-2 5 season) 2024 03/06/2021, 02/13/2021 Influenza Vaccine (#1) 2024 , 10/28/2019, 09/19/2018, Additional history exists Medical Devices Implanted Type Area Liquid Center Assembler Device Identifier Shelf Expiration Date Model / Serial / Lot [employer] Vascu-Guard 8x.8cm Peripheral Patch Vascular Bovine Pericardium [id number]-[id number] - [id number] Implanted:Qty: 1 on 03/30/2022 by Skye Kerr MD at [facility] Left: Neck [employer] 10/30/2026 [id number]-[id number] / / [id number] Insurance [facility] Advance Directives For more information, please contact: [phone] * Full Code (Latest Code Status on File) Date Activated Date Inactivated Comments 03/30/2022 3:48 PM 03/31/2022 4:54 PM Care Teams Lace Roller Relationship Specialty Start Date End Date Ace Fan MD [address] [address] PCP - General Family Medicine 02/23/22
[2024-12-19 10:05] VITALS: BP 133/69; PULSE 75; RESP 18; TEMP 36.3; O2SAT 99; BMI 31.3
[2024-12-19] MEDS: LACTATED RINGERS 1,000 ML 150 ML IV CONT (10:19)
--- NOTE | 2024-12-19 10:26 | WPDANESEPPF ---
Anes - Initial Pre Proc Eval Procedure: Operation Date: 12/19/24 11:30 Proposed Procedures p Screening Colonoscopy - Yamil Brooke MD Date/Time: 12/19/24 10:26 Surgeon: Yamil Brooke MD Pre Op Diagnosis: Screening for malignant neoplasm of colon Patient Data Age: 79 Gender: F Height: 1.63 m Weight: 82.7 kg Last Vital Signs Temp 36.3 C L 12/19/24 10:05 Pulse 75 12/19/24 10:05 Resp 18 12/19/24 10:05 BP 133/69 12/19/24 10:05 Pulse Ox 99 12/19/24 10:05 O2 Del Method Room Air 12/19/24 10:05 Allergies Allergy/AdvReac Type Severity Reaction Status Date / Time Inhaled Anesthetics (Halogen AdvReac Severe Vomiting Verified 12/19/24 10:03 Based) Home Medications ?Medication ?Instructions ?Recorded ?Confirmed ?Type aspirin 81 mg tablet,delayed 81 mg PO DAILY 11/07/20 12/19/24 History release (Adult Aspirin Regimen) cholecalciferol (vitamin D3) 50 2,000 unit PO DAILY 06/30/23 12/19/24 History mcg (2,000 unit) tablet fluticasone propionate 50 1 spray intranasal Q12H PRN Sinus 04/18/24 12/01/24 History mcg/actuation nasal Symptoms spray,suspension (Flonase Allergy Relief) kjnsbhje-eazhwb-cmiuy extract 5 2 cap PO DAILY 04/18/24 12/19/24 History mg-6 mg-150 mg capsule (Fruit and Vegetable Daily) turmeric root extract 150 1 tablet PO DAILY 04/18/24 12/19/24 History mg-bella root extract 25 mg chewable tablet acetaminophen 650 mg 650 mg PO Q12H PRN pain 08/30/24 12/01/24 History tablet,extended release (Tylenol Arthritis Pain) cyanocobalamin (vitamin B-12) 1,000 mcg PO DAILY 08/30/24 12/19/24 History 1,000 mcg tablet lisinopril 30 mg tablet 30 mg PO DAILY #90 tabs 08/30/24 12/19/24 Rx rosuvastatin 10 mg tablet 10 mg PO DAILY #90 tabs 11/13/24 12/19/24 Rx Patient hx anesthesia problems: none Family hx anesthesia problems: none Results Review: All pre-operative results and documents have been reviewed as part of the pre-operative evaluation. [facility] Past Medical History Medical History (Updated 12/01/24 @ 08:19 by Ace Fan MD) Acute bronchitis Vitamin B12 deficiency (08/25/24) vitamin B12 low at 370 with goal greater than 400 with hemoglobin 11.8 on 08/25/2024. Carotid artery occlusion FH: carotid endarterectomy D-dimer, elevated Cellulitis (~05/28/24) Left lower leg Non-healing skin lesion (~12/2023) left maxillary face 0.4 cm with shave biopsy 04/19/2024 Elevated hemoglobin A1c hemoglobin A1c 6.4 with normal glucose at 89 on 01/25/2024. glucose 84 with hemoglobin A1c 6.1 on 04/18/2024. Fasting glucose 90 with hemoglobin A1c 6.3 with GFR 94 on 08/25/2024. Osteoarthritis of left knee Chronic pain of left knee (~12/2023) left knee arthroplasty 04/26/2024. severe tricompartmental osteoarthritis on x-ray in the ER 01/17/2024. Abnormal mammogram of right breast (11/29/23) mild asymmetry of the right breast on mammogram 11/29/2023 with need for additional views and ultrasound. Normal mammogram 12/29/2023. Left otitis media Acute non-recurrent maxillary sinusitis At low risk for fall BMI 32.0-32.9,adult Chronic serous otitis media of both ears Seasonal allergic rhinitis BMI 30.0-30.9,adult Headache Otitis media Otalgia of left ear Dermatitis (06/12/22) left anterior chest Fibrocystic breast normal mammogram 06/25/2022 with recheck in 1 year. Normal mammogram 12/29/2023. Breast pain, left (~03/2022) Breast cancer screening by mammogram normal mammogram 12/29/2023. Normal mammogram 11/30/2024. Actinic keratosis (~12/22/21) nose and left forearm BMI 31.0-31.9,adult Mixed hyperlipidemia Total cholesterol 172, triglycerides 197, HDL 56 and LDL 87 on 05/13/2021. total cholesterol 184, triglycerides 202, HDL 58, LDL 92 on 06/21/2023. Cholesterol 165, triglycerides 190, HDL 54, LDL 79 on 01/25/2024. Cholesterol 174, triglycerides 205, HDL 50, LDL 94 with ratio 3.5 on 08/25/2024. Vitamin D deficiency (~06/21/23) Level low at 22.9 on 06/21/2023. Level normal at 31 on 08/25/2024. COVID-19 vaccine series completed Hypertension Dysphagia Breast adenoma Family History Family History Mother Depression Patient's mother is Father Patient's father is Family history of alcoholism Family history of heart disease in male family member before age 55 Hypertension Sibling Family history of lung cancer Patient's brother is Lung cancer Social History Social History Smoking status: Never smoker Second hand tobacco smoke exposure: No Alcohol intake: never Substance use: never Substance use type: does not use Do You Feel Safe in your Home?: Yes Lack of Transportation: No Lack of Food: Never True Current Housing: I Have Housing Concerned About Future Housing: No Difficulty Paying Gas/Electric Bills: No Difficulty Paying for Meds: No Currently Unemployed: No Education: Master's Degree or Higher Difficulty w/ Childcare or Family Care: No Living arrangements: with family Additional living arrangements comments: MAIN Occupation/Education: occupation Additional occupation/education comments: [place] Gender identity (if verbalized by the patient): Female Sexual Orientation (if Verbalized by the Patient): Straight or Heterosexual Spiritual care concerns: No Anes - Eval Final PreProcedure Day of Procedure 12/19/24 10:26 Patient weight: obese Heart: regular rate and rhythm Lungs: clear to auscultation Airway: Mallampati scale class II Neurological: alert and oriented Last oral intake: >/= 8 hours ASA classification: III Emergent: no Anesthetic plan: proceed Anesthesia type and monitoring: general GIVS and standard monitoring Results Review: All pre-operative results and documents have been reviewed as part of the pre-operative evaluation. Informed Consent: The patient's anesthetic plan and its attendant risks and benefits were discussed with the patient/family/POA. Questions were solicited and answers provided to the satisfaction of the patient/family/POA.
--- NOTE | 2024-12-19 10:32 | PM.HPGS ---
History of Present Illness History of Present Illness Consent: Risks, benefits, and alternatives have been discussed and questions answered. Patient agrees to proceed with procedure. Chief complaint: Screening for malignant neoplasm of colon Narrative: Carly Kumar is a 79 year old female here for screening colonoscopy, last one about 15 years ago Review of Systems Review of Systems: All systems reviewed & are unremarkable except as noted in HPI and below PMFSH Past Medical History Medical History (Updated 12/01/24 @ 08:19 by Ace Fan MD) Acute bronchitis Vitamin B12 deficiency (08/25/24) vitamin B12 low at 370 with goal greater than 400 with hemoglobin 11.8 on 08/25/2024. Carotid artery occlusion FH: carotid endarterectomy D-dimer, elevated Cellulitis (~05/28/24) Left lower leg Non-healing skin lesion (~12/2023) left maxillary face 0.4 cm with shave biopsy 04/19/2024 Elevated hemoglobin A1c hemoglobin A1c 6.4 with normal glucose at 89 on 01/25/2024. glucose 84 with hemoglobin A1c 6.1 on 04/18/2024. Fasting glucose 90 with hemoglobin A1c 6.3 with GFR 94 on 08/25/2024. Osteoarthritis of left knee Chronic pain of left knee (~12/2023) left knee arthroplasty 04/26/2024. severe tricompartmental osteoarthritis on x-ray in the ER 01/17/2024. Abnormal mammogram of right breast (11/29/23) mild asymmetry of the right breast on mammogram 11/29/2023 with need for additional views and ultrasound. Normal mammogram 12/29/2023. Left otitis media Acute non-recurrent maxillary sinusitis At low risk for fall BMI 32.0-32.9,adult Chronic serous otitis media of both ears Seasonal allergic rhinitis BMI 30.0-30.9,adult Headache Otitis media Otalgia of left ear Dermatitis (06/12/22) left anterior chest Fibrocystic breast normal mammogram 06/25/2022 with recheck in 1 year. Normal mammogram 12/29/2023. Breast pain, left (~03/2022) Breast cancer screening by mammogram normal mammogram 12/29/2023. Normal mammogram 11/30/2024. Actinic keratosis (~12/22/21) nose and left forearm BMI 31.0-31.9,adult Mixed hyperlipidemia Total cholesterol 172, triglycerides 197, HDL 56 and LDL 87 on 05/13/2021. total cholesterol 184, triglycerides 202, HDL 58, LDL 92 on 06/21/2023. Cholesterol 165, triglycerides 190, HDL 54, LDL 79 on 01/25/2024. Cholesterol 174, triglycerides 205, HDL 50, LDL 94 with ratio 3.5 on 08/25/2024. Vitamin D deficiency (~06/21/23) Level low at 22.9 on 06/21/2023. Level normal at 31 on 08/25/2024. COVID-19 vaccine series completed Hypertension Dysphagia Breast adenoma Family History Family History Mother Depression Patient's mother is Father Patient's father is Family history of alcoholism Family history of heart disease in male family member before age 55 Hypertension Sibling Family history of lung cancer Patient's brother is Lung cancer Social History Social History Smoking status: Never smoker Second hand tobacco smoke exposure: No Alcohol intake: never Substance use: never Substance use type: does not use Do You Feel Safe in your Home?: Yes Lack of Transportation: No Lack of Food: Never True Current Housing: I Have Housing Concerned About Future Housing: No Difficulty Paying Gas/Electric Bills: No Difficulty Paying for Meds: No Currently Unemployed: No Education: Master's Degree or Higher Difficulty w/ Childcare or Family Care: No Living arrangements: with family Additional living arrangements comments: MAIN Occupation/Education: occupation Additional occupation/education comments: [place], [place] Gender identity (if verbalized by the patient): Female Sexual Orientation (if Verbalized by the Patient): Straight or Heterosexual Spiritual care concerns: No Meds Home Medications and Allergies Home Medications ?Medication ?Instructions ?Recorded ?Confirmed ?Type aspirin 81 mg tablet,delayed 81 mg PO DAILY 11/07/20 12/19/24 History release (Adult Aspirin Regimen) cholecalciferol (vitamin D3) 50 2,000 unit PO DAILY 06/30/23 12/19/24 History mcg (2,000 unit) tablet fluticasone propionate 50 1 spray intranasal Q12H PRN Sinus 04/18/24 12/01/24 History mcg/actuation nasal Symptoms spray,suspension (Flonase Allergy Relief) mbilnuls-jdfnub-tujqj extract 5 2 cap PO DAILY 04/18/24 12/19/24 History mg-6 mg-150 mg capsule (Fruit and Vegetable Daily) turmeric root extract 150 1 tablet PO DAILY 04/18/24 12/19/24 History mg-bella root extract 25 mg chewable tablet acetaminophen 650 mg 650 mg PO Q12H PRN pain 08/30/24 12/01/24 History tablet,extended release (Tylenol Arthritis Pain) cyanocobalamin (vitamin B-12) 1,000 mcg PO DAILY 08/30/24 12/19/24 History 1,000 mcg tablet lisinopril 30 mg tablet 30 mg PO DAILY #90 tabs 08/30/24 12/19/24 Rx rosuvastatin 10 mg tablet 10 mg PO DAILY #90 tabs 11/13/24 12/19/24 Rx Allergies Allergy/AdvReac Type Severity Reaction Status Date / Time Inhaled Anesthetics (Halogen AdvReac Severe Vomiting Verified 12/19/24 10:03 Based) Vital Signs Vital Signs - 24 hr 12/19/24 10:05 Temperature 97.3 F L Pulse Rate 75 Respiratory Rate 18 Blood Pressure 133/69 Pulse Oximetry 99 Oxygen Delivery Room Air Exam Const: General: comfortable and no acute distress HENMT: Face/Nose/Sinus: Normal nares present Eyes: General: appearance normal, both eyes and all related structures Neck: Neck: no JVD Resp: Auscultation: clear to auscultation bilaterally Cardio: Rate: regular rate Rhythm: regular rhythm GI: Inspection: non-distended GI Palp: Yes Soft to palpation Skin: General skin exam: normal color Neuro: Speech: normal speech Extrem: General: normal to inspection Psych: Mental Status: mental status grossly normal Assessment and Plan Assessment and plan (1) Encounter for screening colonoscopy: Code(s): Z12.11 - Encounter for screening for malignant neoplasm of colon Status: Acute Assessment and Plan: colonoscopy
[2024-12-19 10:48] VITALS: BP 90/38; PULSE 64; RESP 15; O2SAT 97
[2024-12-19 10:58] VITALS: BP 99/44; PULSE 67; RESP 20; O2SAT 97
[2024-12-19 11:08] VITALS: BP 126/45; PULSE 62; RESP 20; O2SAT 99
== END 2024-12-19 11:23 | disposition home or self-care (01) ==
PROVIDERS: PCP Family Medicine; Visit Provider Internal Medicine Gastroenterology
PROC: 0DJD8ZZ Inspection of Lower Intestinal Tract, Via Natural or Artificial Opening Endoscopic (ICD-10-PCS; CPT 45378; principal; 2024-12-19 11:30)
DX: Z12.11 Encounter for screening for malignant neoplasm of colon (principal); K64.8 Other hemorrhoids; K57.30 Diverticulosis of large intestine without perforation or abscess without bleeding; E78.2 Mixed hyperlipidemia; E55.9 Vitamin D deficiency, unspecified; I10 Essential (primary) hypertension; E53.8 Deficiency of other specified B group vitamins; M17.12 Unilateral primary osteoarthritis, left knee; G89.29 Other chronic pain; H65.23 Chronic serous otitis media, bilateral; L57.0 Actinic keratosis; E66.9 Obesity, unspecified; Z68.31 Body mass index [BMI] 31.0-31.9, adult; Z79.82 Long term (current) use of aspirin; Z86.79 Personal history of other diseases of the circulatory system; Z80.1 Family history of malignant neoplasm of trachea, bronchus and lung; Z82.49 Family history of ischemic heart disease and other diseases of the circulatory system
CPT/HCPCS: G0105; J2003; J2704; J7120